=== PATIENT | male | born 1950 | race Caucasian/White ===

== ENCOUNTER 2017-08-26 14:52 | Inpatient (IN) | payer OTHER ==
[~2017-08-26] VITALS: Ht 170.2 cm; Wt 85.7 kg
[2017-08-26 14:58] VITALS: BP 148/84
[2017-08-26] MEDS ORDERED: LIP80 PO (15:29)
[2017-08-26] MEDS ORDERED: ALLO100T21 PO (15:29)
[2017-08-26] MEDS ORDERED: ATI.5 PO (15:29)
[2017-08-26] MEDS ORDERED: ASPI81TA18 PO (15:29)
[2017-08-26] MEDS ORDERED: INSU-1331 SC (15:41)
[2017-08-26] MEDS ORDERED: LISI5TAB18 PO (15:41)
[2017-08-26] MEDS ORDERED: MEMA10TA PO (15:41)
[2017-08-26] MEDS ORDERED: MELA5TAB5 PO (15:41)
[2017-08-26] MEDS ORDERED: TRAZ-286 PO (15:41)
[2017-08-26] MEDS ORDERED: METO25TE2 PO (15:41)
[2017-08-26] MEDS ORDERED: FINA5TAB1 PO (15:41)
[2017-08-26] MEDS ORDERED: INSU100S54 SC (15:41)
[2017-08-26] MEDS ORDERED: MECL-322 PO (15:41)
[2017-08-26] MEDS ORDERED: QUET50TA PO (15:41)
[2017-08-26] MEDS ORDERED: TIZA4TAB11 PO (15:41)
[2017-08-26] MEDS ORDERED: ONDA4TAB PO (15:41)
[2017-08-26] MEDS ORDERED: VITD1000 PO (15:41)
[2017-08-26] MEDS ORDERED: PANT40EC PO (15:41)
[2017-08-26] MEDS ORDERED: LEVE1000 PO (15:41)
[2017-08-26] MEDS ORDERED: DONE10TA37 PO (15:41)
[2017-08-26] MEDS ORDERED: METOCLOPRAMIDE 10 MG/2 ML INJ VIAL IVP ONE (15:45)
[2017-08-26] MEDS ORDERED: ONDANSETRON 4 MG/2 ML VIAL IVP ONE (15:45)
[2017-08-26] MEDS ORDERED: NACL 0.9% 2,000 ML IV SCH (15:45)
[2017-08-26] MEDS ORDERED: FAMOTIDINE 20 MG/2 ML VIAL IVP ONE (15:45)
--- NOTE | 2017-08-26 16:06 | NUR ---
Assumed care of patient; iv saline lock started and labs draw. called lab for pick and shovel man. Patient with no complaints. Patient denies any chest pain or sob. RR are even and unlabored. Will continue to monitor.
[2017-08-26 16:26] LABS: BASOPHILS # (AUTO) 0.1 K/uL (0.00-0.22); BASOPHILS % (AUTO) 0.5 % (0.0-2.0); EOSINOPHILS % (AUTO) 0.1 % (0.0-4.0); HEMATOCRIT 40.7 % (36-52); LYMPHOCYTES # (AUTO) 1.3 K/uL (2.0-11.5); LYMPHOCYTES % (AUTO) 9.1 % (20.5-51.1); MEAN CORPUSCULAR HEMOGLOBIN 30 pg (27-31); MEAN CORPUSCULAR HGB CONC 35 g/dL (33-37); MEAN CORPUSCULAR VOLUME 86.7 fL (80-94); MONOCYTES # (AUTO) 1.3 K/uL (0.8-1.0); MONOCYTES % (AUTO) 9.2 % (1.7-9.3); NEUTROPHILS # (AUTO) 11.9 K/uL (1.8-7.7); NEUTROPHILS % (AUTO) 81.1 % (42.2-75.2); PLATELET COUNT (AUTO) 264 K/uL (140-450); RED CELL DISTRIBUTION WIDTH 13.8 % (11.6-13.7); WHITE BLOOD COUNT (AUTO) 14.7 K/uL (4.8-10.8)
[2017-08-26 16:29] LABS: APPEARANCE,URINE CLEAR (CLEAR); BLOOD, URINE NEGATIVE (NEGATIVE); LEUKOCYTE ESTERASE ,URINE NEGATIVE (NEGATIVE); NITRITE, URINE NEGATIVE (NEGATIVE); UGLUCOSE 1+ (NEGATIVE)
[2017-08-26 16:40] LABS: ANION GAP 13.6 (8-16); CARBON DIOXIDE 29.2 mmol/L (21-32); CREATININE 1.1 mg/dL (0.7-1.3); POTASSIUM 3.8 mmol/L (3.5-5.1)
[2017-08-26 16:43] LABS: PROTHROMBIN TIME 11.9 secs (10.8-13.4)
[2017-08-26 16:45] LABS: ALBUMIN 2.7 g/dL (3.4-5.0); TOTAL BILIRUBIN 1.2 mg/dL (0.0-1.0)
[2017-08-26 16:50] LABS: BILIRUBIN,URINE NEGATIVE (NEGATIVE); COLOR,URINE AMBER (YELLOW)
[2017-08-26 16:53] LABS: RBC,URINE 0-5 (RARE) /HPF (0-5); WBC,URINE 6-15 (FEW) /HPF (0-5)
[2017-08-26 16:59] LABS: AMYLASE 67 U/L (25-115); LIPASE 612 U/L (73-393)
--- NOTE | 2017-08-26 17:03 | NUR ---
patient to restroom via w/c with daughter. returned to rm 9 without incidient.
[2017-08-26] MEDS ORDERED: ACETAMINOPHEN 325 MG TAB PO PRN (17:15)
[2017-08-26] MEDS ORDERED: DOCUSATE SODIUM 100 MG GELCAP PO PRN (17:15)
[2017-08-26] MEDS ORDERED: LORazepam 2 MG/ML VIAL IM/IVP PRN (17:15)
[2017-08-26] MEDS ORDERED: ZOLPIDEM 5 MG TAB PO PRN (17:15)
--- NOTE | 2017-08-26 18:00 | NUR ---
Awaiting admit room. Patient sts abdomen pain returning. ER md martinez made aware. Will continue to monitor.
[2017-08-26 18:12] LABS: CHOL/HDL RATIO 2.5 (1-4.5); MAGNESIUM 1.5 mg/dL (1.8-2.4); PHOSPHORUS 3.1 mg/dL (2.5-4.9); THYROID STIMULATING HORMONE 0.73 uIU/mL (0.34-3.74)
--- NOTE | 2017-08-26 18:30 | NUR ---
Patient will be admitted to care of [facility]. Admited to Med Surg. Will go to room 110B. Belongings list completed. Bedside Report to Kevin Zazueta.
--- NOTE | 2017-08-26 18:30 | NUR ---
RECEIVED FROM ER VIA [facility] ACCOMPANIED BY PT. DAUGHTER -MAC. NO SIGNS AND SYMPTOMS OF ACUTE DISTRESS NOTED. KEEP COMFORTABLE ON BED. FALL PRECAUTION APPLIED. CALL LIGHT WITHIN REACH. WILL ENDORSED TO VOCATIONAL NURSE LVN NURSE FOR COMPLETION OF ADMISSION.
[2017-08-26] MEDS ORDERED: DEXTROSE 50% 50 ML SYR IVP PRN (18:40)
[2017-08-26 18:44] VITALS: BP 145/81
--- NOTE | 2017-08-26 18:45 | NUR ---
DR. RAMOS CAME SPOKE TO PT. AND PT. DAUGHTER -MAC AT BEDSIDE. ALSO INFORMED DR. RAMOS ABOUT PT. LAB RESULTS. AND LATEST VITALS SIGNS.
[2017-08-26] MEDS ORDERED: MAG SULF 2000 MG/WATER PREMIX 50 ML IV SCH (19:00)
--- NOTE | 2017-08-26 19:23 | NUR ---
ADMITTED A 66 Y/O MALE WITH CHIEF COMPLAIN OF GENERALIZED WEAKNESS. SEEN PATIENT SITTING ON THE BED. PATIENT A0X2.BED IN LOW POSITION AND CALL LIGHT WITHIN REACH. ROUTINE ADMISSION CARE DONE AND CARRIED OUT ORDERS. NO PERSONAL BELONGINGS. PLAN OF CARE DISCUSSED TO FAMILY.WILL CONTINUE TO MONITOR.
--- NOTE | 2017-08-26 19:23 | NUR ---
BEDSIDE REPORT GIVEN TO RADHA SIMMS. IN STABLE CONDITION. ALSO ENDORSED TO COMPLETE PT. ADMISSION.
[2017-08-26] MEDS ORDERED: MECLIZINE 25 MG TAB PO PRN (19:35)
[2017-08-26] MEDS ORDERED: LORazepam 0.5 MG TAB PO PRN (19:35)
[2017-08-26] MEDS ORDERED: METO25TA PO (19:43)
[2017-08-26] MEDS: NACL 0.9% 1,000 ML IV SCH (20:35)
[2017-08-26] MEDS: QUEtiapine FUMARATE 25 MG TAB PO SCH (20:58)
[2017-08-26] MEDS: levETIRAcetam 500 MG TAB PO SCH (20:59)
[2017-08-26] MEDS: ATORVASTATIN 80 MG TAB PO SCH (20:59)
[2017-08-26] MEDS: METOPROLOL 25 MG TAB PO SCH (20:59)
[2017-08-26] MEDS: tiZANidine 4 MG TAB PO SCH (21:00)
[2017-08-26] MEDS: MEMANTINE 10 MG TAB PO SCH (21:00)
[2017-08-26] MEDS ORDERED: ASPIRIN 81 MG TAB.CHEW PO SCH (21:00)
--- NOTE | 2017-08-26 21:00 | NUR ---
SEEN PATIENT RESTING ON BED. BED IN LOW POSITION. MEDICATION GIVEN AND TOLERATED WELL. BS TAKEN NO COVERAGE NEEDED .CALL LIGHT WITHIN REACH. . NO S/S OF DISTRESS NOTED AT THIS TIME. WILL CONTINUE TO MONITOR.
[2017-08-26] MEDS: traZODone 50 MG TAB PO SCH (21:11)
[2017-08-26] MEDS: BLOOD GLUCOSE MONITORING 1 DEV DEV FS SCH (21:14)
[2017-08-26] MEDS ORDERED: CLINDAMYCIN 600 MG/4 ML VIAL ONE (21:48)
[2017-08-26] MEDS: LEVOFLOXACIN 750 MG/D5W PREMIX 150 ML IV SCH (21:48)
[2017-08-26] MEDS: CLINDAMYCIN 600 MG in DEXTROSE 5% 50 ML IV SCH (21:48)
--- NOTE | 2017-08-26 23:15 | NUR ---
SEEN PATIENT ASLEEP ON BED. CALL LIGHT WITHIN REACH. BED IN LOW POSITION. NO S//S OF DISTRESS NOTED AT THIS TIME.
[2017-08-27] MEDS: NACL 0.9% 1,000 ML IV SCH (00:57)
--- NOTE | 2017-08-27 01:10 | NUR ---
CHECKED PATIENT ASLEEP ON BED IN COMFORTABLE POSITION. NO S/S OF DISTRESS NOTED AT THIS TIME. BED IN LOW POSITION. WILL CONTINUE TO MONITOR.
[2017-08-27 04:00] VITALS: BP 133/72
[2017-08-27] MEDS ORDERED: CLINDAMYCIN 600 MG/4 ML VIAL ONE (04:22)
[2017-08-27] MEDS: CLINDAMYCIN 600 MG in DEXTROSE 5% 50 ML IV SCH (04:25)
--- NOTE | 2017-08-27 04:39 | NUR ---
SEEN PATIENT RESTING COMFORTABLY ON BED.CALL LIGHTS WITHIN REACH. REPOSITIONED PATIENT TO HIS SIDE .
[2017-08-27] MEDS: INSULIN LISPRO SLIDING SCALE 100 UNITS/ML VIAL SUBQ PRN ×3 (06:02→21:12)
[2017-08-27] MEDS: BLOOD GLUCOSE MONITORING 1 DEV DEV FS SCH ×4 (06:04→21:10)
[2017-08-27 07:02] LABS: BASOPHILS % (AUTO) 0.2 % (0.0-2.0); HEMATOCRIT 37.6 % (36-52); HEMOGLOBIN 12.8 g/dL (12.0-18.0); LYMPHOCYTES # (AUTO) 1.1 K/uL (2.0-11.5); LYMPHOCYTES % (AUTO) 6.9 % (20.5-51.1); MEAN CORPUSCULAR HEMOGLOBIN 30 pg (27-31); MEAN CORPUSCULAR HGB CONC 34 g/dL (33-37); MONOCYTES # (AUTO) 1.6 K/uL (0.8-1.0); MONOCYTES % (AUTO) 10.2 % (1.7-9.3); NEUTROPHILS # (AUTO) 12.7 K/uL (1.8-7.7); NEUTROPHILS % (AUTO) 82.7 % (42.2-75.2); PLATELET COUNT (AUTO) 252 K/uL (140-450); RED BLOOD CELL COUNT(AUTO) 4.32 MIL/uL (4.20-6.10); RED CELL DISTRIBUTION WIDTH 13.7 % (11.6-13.7); WHITE BLOOD COUNT (AUTO) 15.4 K/uL (4.8-10.8)
[2017-08-27 07:22] LABS: ANION GAP 12.1 (8-16); CREATININE 1.1 mg/dL (0.7-1.3); POTASSIUM 4.1 mmol/L (3.5-5.1)
[2017-08-27 07:27] LABS: MAGNESIUM 1.9 mg/dL (1.8-2.4); PHOSPHORUS 2.9 mg/dL (2.5-4.9)
--- NOTE | 2017-08-27 07:27 | NUR ---
ENDORSEMENT GIVEN TO AM SHIFT FOR CONTINUITY OF CARE. PATIENT IN STABLE CONDITION.
--- NOTE | 2017-08-27 07:30 | NUR ---
RECEIVED REPORT FROM DAY CARE CENTER DIRECTOR RN. PATIENT IS IN STABLE CONDITION. AAO X2. NO DISTRESS NOTED. DENIES PAIN AT THIS TIME. CRACKLES AUSCULTATED AT BASE OF LUNGS. HEART RHYTHM IS REGULAR, S1 AND S2 NOTED. ABDOMEN IS SOFT AND NON-DISTENDED. IV SITE IS PATENT, ASYMPTOMATIC, AND RUNNING IVF PER MD ORDERS. SKIN IS INTACT. DISCUSSED PLAN OF CARE WITH PATIENT. PATIENT VERBALIZED UNDERSTANDING BUT REINFORCEMENT IS NEEDED. ALL SAFETY MEASURES ARE IN PLACE, CALL LIGHT WITHIN REACH. WILL CONTINUE TO MONITOR.
[2017-08-27 08:00] VITALS: BP 143/78
--- NOTE | 2017-08-27 08:37 | NUR ---
PATIENT HAS BEEN SCREENED AND CATEGORIZED HIGH NUTRITION RISK. PATIENT WILL BE SEEN WITHIN 1-2 DAYS OF ADMISSION. 08/27/17 08/28/[address]
[2017-08-27] MEDS: INSULIN LANTUS 100 UNITS/ML 10 ML VIAL SUBQ SCH (09:00)
[2017-08-27] MEDS: levETIRAcetam 500 MG TAB PO SCH ×2 (09:01→20:20)
[2017-08-27] MEDS: CHOLECALCIFEROL 1,000 IU TAB PO SCH (09:01)
[2017-08-27] MEDS: ALLOPURINOL 100 MG TAB PO SCH (09:02)
[2017-08-27] MEDS: PANTOPRAZOLE 40 MG TABEC PO SCH (09:02)
[2017-08-27] MEDS: DONEPEZIL 10 MG TAB PO SCH (09:02)
[2017-08-27] MEDS: MEMANTINE 10 MG TAB PO SCH ×2 (09:02→20:20)
[2017-08-27] MEDS: LACTOBACILLUS RHAMNOSUS GG 1 EACH CAP PO SCH (09:03)
[2017-08-27] MEDS: FINASTERIDE 5 MG TAB PO SCH (09:03)
[2017-08-27] MEDS: TAMSULOSIN 0.4 MG CAP PO SCH (09:03)
[2017-08-27] MEDS: METOPROLOL 25 MG TAB PO SCH ×2 (09:03→20:20)
--- NOTE | 2017-08-27 09:03 | NUR ---
SCHEDULED MEDICATIONS GIVEN AT THIS TIME PER MD ORDERS. PATIENT DENIES PAIN. NO DISTRESS NOTED. WILL CONTINUE TO MONITOR.
[2017-08-27] MEDS: LISINOPRIL 5 MG TAB PO SCH (09:04)
[2017-08-27] MEDS: FUROSEMIDE 40 MG/4 ML VIAL IVP SCH (09:05)
--- NOTE | 2017-08-27 12:25 | NUR ---
PATIENT'S BLOOD SUGAR IS 137. WILL CONTINUE TO MONITOR. ALL SAFETY MEASURES ARE IN PLACE, CALL LIGHT WITHIN REACH.
[2017-08-27] MEDS ORDERED: CLINDAMYCIN PHOS 600MG/D5W PM 50 ML IV SCH (13:00)
[2017-08-27] MEDS ORDERED: metroNIDAZOLE 500 MG/NS PREMIX 100 ML IV SCH (13:10)
--- NOTE | 2017-08-27 14:55 | NUR ---
PATIENT IS RESTING IN BED, AROUSABLE BY VOICE. DENIES PAIN AT THIS TIME. WILL CONTINUE TO MONITOR.
[2017-08-27 16:00] VITALS: BP 130/68
[2017-08-27] MEDS: ALBUTEROL SULFATE/IPRATROPIU 3 ML SOL IH SCH (19:22)
--- NOTE | 2017-08-27 19:30 | NUR ---
REPORT GIVEN TO ANALYSIS MANAGER NURSE AT BEDSIDE. PATIENT IS IN STABLE CONDITION.
--- NOTE | 2017-08-27 19:30 | NUR ---
RECEIVED PATIENT SITTING IN THE CHAIR ON THE BEDSIDE. CALL LIGHTS WITHIN REACH. BED IN LOW POSITION. FREQUENTLY CHECK FOR SAFETY. WILL CONTINUE TO MONITOR.
[2017-08-27] MEDS: traZODone 50 MG TAB PO SCH (20:19)
[2017-08-27] MEDS: QUEtiapine FUMARATE 25 MG TAB PO SCH (20:19)
[2017-08-27] MEDS: ATORVASTATIN 80 MG TAB PO SCH (20:21)
[2017-08-27] MEDS: metroNIDAZOLE 500 MG/NS PREMIX 100 ML IV SCH (20:25)
[2017-08-27] MEDS: tiZANidine 4 MG TAB PO SCH (20:39)
--- NOTE | 2017-08-27 21:00 | NUR ---
MEDICATION GIVEN AND BS TAKEN. PATIENT WAS SITTING IN THE CHAIR NEXT TO BED. PATIENT NEED DIRECTION AND ASSISTING WHILE WALKING. PATIENT ASSISTED BACK TO BED WITH HEAD ELEVATED. CALL LIGHT WITHIN REACH. BED IN LOW POSITION.
[2017-08-27] MEDS: LEVOFLOXACIN 750 MG/D5W PREMIX 150 ML IV SCH (21:14)
[2017-08-28] VITALS: BP 122/67
--- NOTE | 2017-08-28 00:43 | NUR ---
CHECKED PATIENT ASLEEP ON BED. CALL LIGHT WITHIN REACH. BED ALARM ACTIVATE. BED IN LOW POSITION.
--- NOTE | 2017-08-28 02:11 | NUR ---
SEEN PATIENT RESTING ON BED WITH IV FLUID INFUSING WELL. CALL LIGHTS WITHIN REACH. ACTIVATE BED ALARM. BED IN LOW POSITION.
--- NOTE | 2017-08-28 05:05 | NUR ---
PATIENT BED CHANGED AND LORENZO CARE DONE TO PATIENT AND PLACED PATIENT IN COMFORTABLE POSITION WITH CALL LIGHTS WITHIN REACH. BED IN LOW POSITION.
[2017-08-28] MEDS: metroNIDAZOLE 500 MG/NS PREMIX 100 ML IV SCH ×3 (05:36→22:01)
[2017-08-28] MEDS: INSULIN LISPRO SLIDING SCALE 100 UNITS/ML VIAL SUBQ PRN ×4 (06:02→21:04)
[2017-08-28] MEDS: BLOOD GLUCOSE MONITORING 1 DEV DEV FS SCH ×4 (06:04→21:01)
--- NOTE | 2017-08-28 07:15 | NUR ---
GAVE REPORT AT PATIENT BEDSIDE TO AM SHIFT NURSE FOR CONTINUITY OF CARE. PATIENT IN STABLE CONDITION.
[2017-08-28] MEDS: ALBUTEROL SULFATE/IPRATROPIU 3 ML SOL IH SCH ×3 (07:40→20:28)
[2017-08-28 07:41] LABS: BASOPHILS % (AUTO) 0.2 % (0.0-2.0); HEMOGLOBIN 13.2 g/dL (12.0-18.0); LYMPHOCYTES # (AUTO) 0.9 K/uL (2.0-11.5); LYMPHOCYTES % (AUTO) 6.6 % (20.5-51.1); MEAN CORPUSCULAR HEMOGLOBIN 29 pg (27-31); MEAN CORPUSCULAR HGB CONC 34 g/dL (33-37); MEAN CORPUSCULAR VOLUME 86.3 fL (80-94); MONOCYTES % (AUTO) 7.3 % (1.7-9.3); NEUTROPHILS # (AUTO) 12.1 K/uL (1.8-7.7); NEUTROPHILS % (AUTO) 85.9 % (42.2-75.2); PLATELET COUNT (AUTO) 272 K/uL (140-450); RED BLOOD CELL COUNT(AUTO) 4.51 MIL/uL (4.20-6.10); RED CELL DISTRIBUTION WIDTH 13.6 % (11.6-13.7); WHITE BLOOD COUNT (AUTO) 14.1 K/uL (4.8-10.8)
[2017-08-28 07:49] LABS: ANION GAP 14.1 (8-16); CARBON DIOXIDE 26.9 mmol/L (21-32); CREATININE 1.1 mg/dL (0.7-1.3)
[2017-08-28 08:00] VITALS: BP 125/76
[2017-08-28 08:03] LABS: MAGNESIUM 1.6 mg/dL (1.8-2.4)
--- NOTE | 2017-08-28 08:10 | NUR ---
PATIENT WAS SLEEPING COMFORTABLY, EASILY AROUSABLE BY NAME. RESPIRATION EVEN, UNLABOR ON ROOM AIR. SKIN DRY AND WARM. LUNGS SOUND CLEAR THROUGHOUT. BOWEL SOUND ACTIVE. DENIED PAIN, N/V AT THIS TIME. PLAN OF CARE WAS DISCUSSED WITH PATIENT. INSTRUCTED PATIENT NOT TO AMBULATE WITHOUT ASSISTANCE FROM STAFF. BED AT LOW POSITION, SIDE RAILS UP. CALL LIGHT WITHIN REACH
[2017-08-28] MEDS: PANTOPRAZOLE 40 MG TABEC PO SCH (08:57)
[2017-08-28] MEDS: levETIRAcetam 500 MG TAB PO SCH ×2 (08:57→20:47)
[2017-08-28] MEDS: ALLOPURINOL 100 MG TAB PO SCH (08:57)
[2017-08-28] MEDS: METOPROLOL 25 MG TAB PO SCH ×2 (08:57→20:48)
[2017-08-28] MEDS: LACTOBACILLUS RHAMNOSUS GG 1 EACH CAP PO SCH (08:58)
[2017-08-28] MEDS: LISINOPRIL 5 MG TAB PO SCH (08:58)
[2017-08-28] MEDS: FINASTERIDE 5 MG TAB PO SCH (08:58)
[2017-08-28] MEDS: TAMSULOSIN 0.4 MG CAP PO SCH (08:58)
[2017-08-28] MEDS: CHOLECALCIFEROL 1,000 IU TAB PO SCH (08:58)
[2017-08-28] MEDS: MEMANTINE 10 MG TAB PO SCH ×2 (08:58→20:49)
[2017-08-28] MEDS: DONEPEZIL 10 MG TAB PO SCH (08:59)
[2017-08-28] MEDS: FUROSEMIDE 40 MG/4 ML VIAL IVP SCH (08:59)
[2017-08-28] MEDS: INSULIN LANTUS 100 UNITS/ML 10 ML VIAL SUBQ SCH (09:00)
--- NOTE | 2017-08-28 10:23 | NUR ---
RD RECOMMENDATIONS: 1. CONTINUE ON CLEAR LIQUID MEDICALLY APPROPRIATE. 2. ADVANCE DIET TO CCHO 60 GM TOLERATED. 3. CONSULT RDN PRN. 4. RD WILL F/U 2-3 DAYS; HIGH RISK. STEWART CAMPOS MS, RDN
--- NOTE | 2017-08-28 11:42 | NUR ---
DR. JACKSON WAS MADE AWARE OF POTASSIUM 3.0, MG 1.6, AWAITING FOR NEW ORDERS
[2017-08-28] MEDS ORDERED: MAG SULF 2000 MG/WATER PREMIX 50 ML IV SCH (11:50)
[2017-08-28] MEDS ORDERED: POTASSIUM CHLORIDE 10 MEQ TABER PO SCH (11:51)
--- NOTE | 2017-08-28 12:07 | NUR ---
PATIENT IS SLEEPING COMFORTABLY. RESPIRATION EVEN, UNLABOR ON ROOM AIR. NO DISTRESS NOTED AT THIS TIME. CALL LIGHT WITHIN REACH
--- NOTE | 2017-08-28 13:25 | NUR ---
PT IS ASLEEP HHN NOT GIVEN VISITOR BEDSIDE
[2017-08-28] MEDS: NACL 0.9% 1,000 ML IV SCH (14:25)
--- NOTE | 2017-08-28 14:30 | NUR ---
PATIENT IS SLEEPING COMFORTABLY. RESPIRATION EVEN, UNLABOR ON ROOM AIR. NO DISTRESS NOTED AT THIS TIME. CALL LIGHT WITHIN REACH.
[2017-08-28 16:00] VITALS: BP 130/76
--- NOTE | 2017-08-28 16:17 | NUR ---
PATIENT WAS SLEEPING COMFORTABLY, EASILY AROUSABLE BY NAME. RESPIRATION EVEN, UNLABOR ON ROOM AIR. DENIED PAIN AT THIS TIME. VS IS STABLE. NO DISTRESS NOTED. CALL LIGHT WITHIN REACH.
--- NOTE | 2017-08-28 18:39 | NUR ---
PATIENT AWAKE, ALERT. RESPIRATION EVEN, UNLABOR ON ROOM AIR. AMBULATED TO BATHROOM WITH ASSIST BY STAFF. NO DISTRESS NOTED AT THIS TIME. CALL LIGHT WITHIN REACH
--- NOTE | 2017-08-28 19:18 | NUR ---
Patient's Plan of Care was discussed and reviewed with CRANE ASSEMBLER: MILLICENT BRODERICK
--- NOTE | 2017-08-28 19:18 | NUR ---
ENDORSEMENT GIVEN TO THE BUCKLE ATTACHING MACHINE OPERATOR NURSE. PATIENT IS STABLE AT THIS TIME
--- NOTE | 2017-08-28 19:19 | NUR ---
RECD. RESTING IN BED, AWAKE, A/OX2, RESPIRATION EVEN AND UNLABORED. IV OF NS AT 70 ML/HR INFUSING, RIGHT AC G20. SAFETY MEASURES ENFORCED. BED ON ALARM. PLAN OF CARE FOR THE SHIFT DISCUSSED. NEEDS REINFORCEMENT. INSTRUCTED TO USE CALL LIGHT WHEN NEEDING HELP. REORIENTED TO HOSPITAL SETTING. DENIES PAIN 0/10.
[2017-08-28] MEDS: LEVOFLOXACIN 750 MG/D5W PREMIX 150 ML IV SCH (20:30)
[2017-08-28] MEDS: POTASSIUM CHLORIDE 10 MEQ TABER PO SCH (20:46)
[2017-08-28] MEDS: QUEtiapine FUMARATE 25 MG TAB PO SCH (20:46)
[2017-08-28] MEDS: traZODone 50 MG TAB PO SCH (20:47)
[2017-08-28] MEDS: ATORVASTATIN 80 MG TAB PO SCH (20:47)
--- NOTE | 2017-08-28 20:50 | NUR ---
DUE PO MEDICATIONS GIVEN. TOLERATED WELL.
[2017-08-28] MEDS ORDERED: INSULIN LANTUS 100 UNITS/ML 10 ML VIAL SUBQ SCH (21:00)
[2017-08-29] VITALS: BP 99/60
--- NOTE | 2017-08-29 | NUR ---
SLEEPING COMFORTABLY IN BED.
[2017-08-29] MEDS: HYDROcodone/APAP 5/325 MG 1 TAB TAB PO PRN ×2 (01:31→18:10)
[2017-08-29] MEDS: NACL 0.9% 1,000 ML IV SCH ×2 (04:47→19:05)
[2017-08-29] MEDS: metroNIDAZOLE 500 MG/NS PREMIX 100 ML IV SCH ×3 (05:20→20:25)
--- NOTE | 2017-08-29 06:00 | NUR ---
AWAKE, STANDING NEAR BED, USING URINAL. ABLE TO VOID 100 ML TEA COLORED URINE. SAFETY MAINTAINED.
[2017-08-29] MEDS: BLOOD GLUCOSE MONITORING 1 DEV DEV FS SCH ×4 (06:52→21:35)
[2017-08-29] MEDS: INSULIN LISPRO SLIDING SCALE 100 UNITS/ML VIAL SUBQ PRN ×4 (06:54→21:46)
[2017-08-29] MEDS: ALBUTEROL SULFATE/IPRATROPIU 3 ML SOL IH SCH ×3 (07:10→18:47)
--- NOTE | 2017-08-29 07:35 | NUR ---
CONDITION REMAIN STABLE. COMPLAINT OF BACK PAIN ATTENDED PROMPTLY, MEDICATED ORDERED. ENDORSED TO AM NURSE FOR CONTINUITY OF CARE.
--- NOTE | 2017-08-29 07:50 | NUR ---
PATIENT AWAKE, ALERT. RESPIRATION EVEN, UNLABOR ON ROOM AIR. SKIN DRY AND WARM. LUNGS SOUND CLEAR THROUGHOUT. BOWEL SOUND ACTIVE. DENIED PAIN, N/V AT THIS TIME. PLAN OF CARE WAS DISCUSSED WITH PATIENT. INSTRUCTED PATIENT NOT TO AMBULATE WITHOUT ASSISTANCE FROM STAFF. BED AT LOW POSITION, SIDE RAILS UP. CALL LIGHT WITHIN REACH
[2017-08-29 08:00] VITALS: BP 127/80
--- NOTE | 2017-08-29 08:30 | NUR ---
PATIENT SATURATION 90% ON ROOM AIR. NASAL CANNULA WAS PLACED WITH 2L. DR. JACKSON WAS MADE AWARE.
[2017-08-29] MEDS: ALLOPURINOL 100 MG TAB PO SCH (08:56)
[2017-08-29] MEDS: CHOLECALCIFEROL 1,000 IU TAB PO SCH (08:56)
[2017-08-29] MEDS: LACTOBACILLUS RHAMNOSUS GG 1 EACH CAP PO SCH (08:56)
[2017-08-29] MEDS: levETIRAcetam 500 MG TAB PO SCH ×2 (08:56→21:23)
[2017-08-29] MEDS: TAMSULOSIN 0.4 MG CAP PO SCH (08:56)
[2017-08-29] MEDS: POTASSIUM CHLORIDE 10 MEQ TABER PO SCH ×2 (08:56→21:22)
[2017-08-29] MEDS: METOPROLOL 25 MG TAB PO SCH ×3 (08:57→21:23)
[2017-08-29] MEDS: PANTOPRAZOLE 40 MG TABEC PO SCH (08:57)
[2017-08-29] MEDS: FINASTERIDE 5 MG TAB PO SCH (08:57)
[2017-08-29] MEDS: FUROSEMIDE 40 MG/4 ML VIAL IVP SCH (08:57)
[2017-08-29] MEDS: LISINOPRIL 5 MG TAB PO SCH (08:57)
[2017-08-29] MEDS: DONEPEZIL 10 MG TAB PO SCH (08:57)
[2017-08-29] MEDS: MEMANTINE 10 MG TAB PO SCH ×2 (08:58→21:23)
[2017-08-29 09:39] LABS: ANION GAP 14.9 (8-16); CARBON DIOXIDE 26.3 mmol/L (21-32); CREATININE 1.1 mg/dL (0.7-1.3); POTASSIUM 3.2 mmol/L (3.5-5.1)
[2017-08-29 09:52] LABS: HEMATOCRIT 36.3 % (36-52); HEMOGLOBIN 12.3 g/dL (12.0-18.0); MEAN CORPUSCULAR HEMOGLOBIN 29 pg (27-31); MEAN CORPUSCULAR HGB CONC 34 g/dL (33-37); MEAN CORPUSCULAR VOLUME 86.5 fL (80-94); PLATELET COUNT (AUTO) 273 K/uL (140-450); RED BLOOD CELL COUNT(AUTO) 4.19 MIL/uL (4.20-6.10)
[2017-08-29 10:00] LABS: MAGNESIUM 1.6 mg/dL (1.8-2.4)
[2017-08-29 10:36] LABS: PHOSPHORUS 2.7 mg/dL (2.5-4.9)
[2017-08-29 11:01] LABS: BASOPHILS % (MANUAL) 0 % (0-2); EOSINOPHILS % (MANUAL) 0 % (0-4); LYMPHOCYTES % (MANUAL) 8 % (20-46); MONOCYTES % (MANUAL) 10 % (5-12)
--- NOTE | 2017-08-29 11:04 | NUR ---
CALLED AND GAVE REPORT TO MINDY AT [facility]. WILL CALL BACK FOR THE TRANSPORT TIME.
--- NOTE | 2017-08-29 11:06 | NUR ---
DR. JACKSON WAS MADE AWARE PATIENT'S MG 1.6, AWAITING FOR NEW ORDER
[2017-08-29] MEDS ORDERED: MAGNESIUM OXIDE 400 MG TAB PO SCH (11:19)
[2017-08-29] MEDS ORDERED: LEVO750T2 PO (11:26)
[2017-08-29] MEDS ORDERED: POTA10TE30 PO (11:26)
[2017-08-29] MEDS ORDERED: METR250T2 PO (11:27)
--- NOTE | 2017-08-29 12:30 | NUR ---
ATTEMPTED TO CALL , DM REGARDING THE TRANSFER, UNABLE TO LEAVE VOICEMAIL.
--- NOTE | 2017-08-29 12:34 | NUR ---
PATIENT AWAKE, ALERT. RESPIRATION EVEN, UNLABOR ON 2L NC. NO DISTRESS NOTED AT THIS TIME. MEDS WERE GIVEN PER ORDER. CALL LIGHT WITHIN REACH
--- NOTE | 2017-08-29 13:19 | NUR ---
pt sleeping no hhn given no signs of distress noted
--- NOTE | 2017-08-29 14:00 | NUR ---
PATIENT IS RESTING COMFORTABLY. RESPIRATION EVEN, UNLABOR ON ROOM AIR. NO DISTRESS NOTED AT THIS TIME
--- NOTE | 2017-08-29 14:08 | NUR ---
[address] JEFFERSON REGARDING POSSIBLE TRANSFER TO SNF TODAY AND INFORMED HIM THAT PER NURSE HAVE NOT BEEN ABLE TO CONTACT REGARDING TRANSFER AND OBTAINED 'S PREFERENCE FOR SNF. DR JEFFERSON WILL ATTEMPT TO CALL DM.
--- NOTE | 2017-08-29 15:47 | NUR ---
DR. JACKSON WAS MADE AWARE OF PATIENT'S BLOOD SUGAR 405. 12 UNITS OF HUMALOG WAS ORDERED. WILL MEDICATE PER ORDER
[2017-08-29 16:00] VITALS: BP 121/77
--- NOTE | 2017-08-29 16:30 | NUR ---
SPOKE WITH , DM, ON THE PHONE. OK WITH RHEA HERNANDEZ. DR. JACKSON WAS MADE AWARE. WILL INITIATE TRANSFER TOMORROW MORNING.
--- NOTE | 2017-08-29 18:19 | NUR ---
PATIENT AWAKE, ALERT. RESPIRATION EVEN, UNLABOR ON ROOM AIR. PATIENT REFUSED TO WEAR NASAL CANNULA, AND KEPT TAKING IT OFF. EXPLAINED TO THE PATIENT THE RISKS AND BENEFITS. CALL LIGHT WITHIN REACH
--- NOTE | 2017-08-29 19:17 | NUR ---
ENDORSEMENT GIVEN TO THE THEOLOGY PROFESSOR NURSE. PATIENT IS STABLE AT THIS TIME
--- NOTE | 2017-08-29 19:18 | NUR ---
RECD. RESTING IN BED, AWAKE, A/OX2. RESPIRATION EVEN AND UNLABORED. IV OF NS AT 70 ML/HR INFUSING, RIGHT AC G 20. SIT UP IN BED, REORIENTED TO HOSPITAL SETTING, PLAN OF CARE FOR THE SHIFT DISCUSSED. NEEDS REINFORCEMENT. WENT BACK TO SLEEP. SAFETY MEASURES ENFORCED. BED ON ALARM. DENIES PAIN 0/10.
--- NOTE | 2017-08-29 19:18 | NUR ---
Patient's Plan of Care was discussed and reviewed with POST TENSIONING IRONWORKER HELPER: MILLICENT BRODERICK
[2017-08-29 20:00] VITALS: BP 96/51
[2017-08-29] MEDS ORDERED: INSULIN LANTUS 100 UNITS/ML 10 ML VIAL SUBQ SCH (21:00)
[2017-08-29] MEDS: ATORVASTATIN 80 MG TAB PO SCH (21:22)
[2017-08-29] MEDS: QUEtiapine FUMARATE 25 MG TAB PO SCH (21:22)
[2017-08-29] MEDS: traZODone 50 MG TAB PO SCH (21:22)
--- NOTE | 2017-08-29 21:23 | NUR ---
DUE PO MEDICATIONS GIVEN. ATE 100% OF SNACK FOR THE NIGHT.
--- NOTE | 2017-08-29 23:00 | NUR ---
TRANSFERRED TO ROOM 122A. CONTINUED SLEEPING COMFORTABLY IN BED.
[2017-08-30] VITALS: BP 103/53
--- NOTE | 2017-08-30 01:30 | NUR ---
VOIDED IN THE URINAL 175 ML OF CLOUDY TEA COLORED URINE. BACK TO SLEEP AFTER VOIDING.
--- NOTE | 2017-08-30 03:15 | NUR ---
ASSISTED BY SPECIAL EDUCATION CLASSROOM AIDE TO AMBULATE TO BR TO VOID. BACK TO BED AFTER VOIDING, WENT BACK TO SLEEP.
[2017-08-30] MEDS: NACL 0.9% 1,000 ML IV SCH ×2 (04:06→08:50)
[2017-08-30] MEDS: metroNIDAZOLE 500 MG/NS PREMIX 100 ML IV SCH ×3 (04:38→20:43)
[2017-08-30] MEDS: HYDROcodone/APAP 5/325 MG 1 TAB TAB PO PRN (05:29)
[2017-08-30] MEDS: BLOOD GLUCOSE MONITORING 1 DEV DEV FS SCH ×4 (06:15→21:00)
[2017-08-30] MEDS: INSULIN LISPRO SLIDING SCALE 100 UNITS/ML VIAL SUBQ PRN ×4 (06:16→20:37)
[2017-08-30] MEDS: ALBUTEROL SULFATE/IPRATROPIU 3 ML SOL IH SCH ×3 (06:49→19:00)
--- NOTE | 2017-08-30 06:49 | NUR ---
pt sleeping with no signs of distress noted at this time no hhn given
--- NOTE | 2017-08-30 06:53 | NUR ---
CONDITION REMAIN STABLE. WILL ENDORSED TO AM NURSE FOR CONTINUITY OF CARE.
--- NOTE | 2017-08-30 07:30 | NUR ---
STILL SLEEPING COMFORTABLY IN BED. ENDORSED TO AM NURSE FOR CONTINUITY OF CARE.
--- NOTE | 2017-08-30 07:31 | NUR ---
PT IS SLEEPING. NO SIGNS OF DISTRESS. UPDATED THE BOARD. V/S WITHIN NORMAL RANGE. PER COSTUME SHOP MANAGER, PT IS AMBULATORY BUT BEDREST FOR GENERALIZED WEAKNESS. SKIN IS INTACT. IV ON R FA 22G NS AT 70ML INFUSING. PT IS TO BE D/C TODAY BACK TO [facility]. WILL CONTINUE TO MONITOR PT.
[2017-08-30 07:54] LABS: BASOPHILS % (AUTO) 0.3 % (0.0-2.0); EOSINOPHILS % (AUTO) 0.1 % (0.0-4.0); HEMATOCRIT 35.5 % (36-52); LYMPHOCYTES % (AUTO) 8.6 % (20.5-51.1); MEAN CORPUSCULAR HEMOGLOBIN 29 pg (27-31); MEAN CORPUSCULAR HGB CONC 34 g/dL (33-37); MEAN CORPUSCULAR VOLUME 86.2 fL (80-94); MONOCYTES % (AUTO) 8.3 % (1.7-9.3); NEUTROPHILS # (AUTO) 10.1 K/uL (1.8-7.7); NEUTROPHILS % (AUTO) 82.7 % (42.2-75.2); PLATELET COUNT (AUTO) 294 K/uL (140-450); RED BLOOD CELL COUNT(AUTO) 4.12 MIL/uL (4.20-6.10); WHITE BLOOD COUNT (AUTO) 12.3 K/uL (4.8-10.8)
[2017-08-30 08:00] VITALS: BP 114/66
[2017-08-30 08:07] LABS: ANION GAP 11.4 (8-16); CARBON DIOXIDE 25.6 mmol/L (21-32); CREATININE 0.9 mg/dL (0.7-1.3)
[2017-08-30 08:09] LABS: MAGNESIUM 1.5 mg/dL (1.8-2.4); PHOSPHORUS 2.7 mg/dL (2.5-4.9)
[2017-08-30] MEDS: POTASSIUM CHLORIDE 10 MEQ TABER PO SCH (08:47)
[2017-08-30] MEDS: DONEPEZIL 10 MG TAB PO SCH (08:47)
[2017-08-30] MEDS: levETIRAcetam 500 MG TAB PO SCH ×2 (08:47→20:43)
[2017-08-30] MEDS: CHOLECALCIFEROL 1,000 IU TAB PO SCH (08:47)
[2017-08-30] MEDS: LACTOBACILLUS RHAMNOSUS GG 1 EACH CAP PO SCH (08:48)
[2017-08-30] MEDS: LISINOPRIL 5 MG TAB PO SCH (08:48)
[2017-08-30] MEDS: ALLOPURINOL 100 MG TAB PO SCH (08:48)
[2017-08-30] MEDS: MEMANTINE 10 MG TAB PO SCH ×2 (08:48→20:42)
[2017-08-30] MEDS: TAMSULOSIN 0.4 MG CAP PO SCH (08:48)
[2017-08-30] MEDS: METOPROLOL 25 MG TAB PO SCH ×2 (08:48→20:43)
[2017-08-30] MEDS: FUROSEMIDE 40 MG/4 ML VIAL IVP SCH (08:49)
[2017-08-30] MEDS: FINASTERIDE 5 MG TAB PO SCH (08:49)
[2017-08-30] MEDS: PANTOPRAZOLE 40 MG TABEC PO SCH (08:49)
--- NOTE | 2017-08-30 08:59 | NUR ---
ADMINISTERED MORNING MEDS. PT TOLERATED WELL. P/T IS WORKING WITH PT. PT AMBULATING WELL W/ WALKER. WILL CONTINUE TO MONITOR PT.
--- NOTE | 2017-08-30 10:26 | NUR ---
PT URINATED ON THE FLOOR. PT ALL WET. CLEANED PT. NEW GOWN ON. NOTIFIED HOUSEKEEPING TO CLEAN FLOOR.
--- NOTE | 2017-08-30 10:57 | NUR ---
RECEIVED ORDER FOR TRANSFER PATIENT FOR HIGHER LEVEL OF CARE. SPOKE WITH PRATIMA AT [facility]. FAXED FACE SHEET, H&P AND ORDER TO [facility] AT [phone],
--- NOTE | 2017-08-30 11:29 | NUR ---
PT'S FAMILY, AND DAUGHTER IS HERE FOR UPDATES. EXPLAINED TO FAMILY THAT HE WILL BE TRANSFERRING TO HIGHER LEVEL OF CARE D/T TO HYDRONEPHROSIS AND AND THE PSEUDOCYSTS ON THE PANCREAS. NEED FURTHER WORK UP. VERBALIZED UNDERSTANDING. HE IS WET AGAIN. THIRD TIME NEEDED CHANGING. CALLED FOOD TRAY ASSEMBLER TO CLEAN FLOOR.
--- NOTE | 2017-08-30 11:37 | NUR ---
SPOKE WITH BEVERLY AT [facility]. FAXED FACE SHEET AND ORDER TO HER AT [phone] PHONE [phone] RECEIVED A CALL FROM PRATIMA AT [facility] REQUESTING RESULTS OF CT ABD. FAXED REPORTS TO HER AT [phone]
--- NOTE | 2017-08-30 12:00 | NUR ---
NOTIFIED DR JACKSON OF PT'S LOW SODIUM AND LOW MAG. MD AWARE. NOTIFIED MD THAT FAMILY IS HERE ASKING QUESTIONS ABOUT TRANSFER. MD SPOKE TO FAMILY.
--- NOTE | 2017-08-30 12:11 | NUR ---
ADMINISTERED 6 U OF HUMALOG FOR BS 295 AND FLAGYL. PT TOLERATING WELL. PT IN BED WATCHING TV. WILL CONTINUE TO MONITOR PT.
--- NOTE | 2017-08-30 13:08 | NUR ---
pt refused breathing tx sitting up in bed with no signs of distress noted at this time florentin gonzalez notified
--- NOTE | 2017-08-30 13:29 | NUR ---
RECEIVED A CALL FROM DESHAWN FROM [facility]. SHE SAID DR. COLINDRES, MATT, NEEDED TO SEE THE FILMS, AND JUST THE REPORTS WHICH I HAD ALREADY FAXED TO HER. HAD DISC BURNED AND CHRISTINE IS TRANSPORTING THE DISC TO [facility]. HE IS TO GO T0 THE GI LAB WITH THE DISC FOR DR. COLINDRES. I CALLED DESHAWN FROM THE TRANSFEER CENTER, OP 2 OP 3 AND INFORMED HER THAT THE DISC IS ON ITS WAY.
--- NOTE | 2017-08-30 14:38 | NUR ---
PT WAS AMBULATING IN THE HALLWAY ABOUT 20 MIN AGO. NOW HE IS BACK IN BED, SLEEPING. NO SIGNS OF DISTRESS. STILL WAITING FOR TRANSPORTATION AND OK TO TRANSFER PT TO [facility].
--- NOTE | 2017-08-30 15:42 | NUR ---
I CALLED THE GI LAB AT [facility], . THEY DID RECEIVED THE DISC. I CALLED DESHAWN FROM THE TRANSFER CENTER AND SHE WAS GOING TO CONTACT DR. COLINDRES THAT THE DISC WAS AT THE GI LAB. I GAVE DESHAWN THE PHONE THE THE FLOOR IN CASE THEY WILL ACCEPT THE PATIENT .
[2017-08-30 16:00] VITALS: BP 124/74
[2017-08-30] MEDS ORDERED: MAG SULF 2000 MG/WATER PREMIX 50 ML IV SCH (16:00)
--- NOTE | 2017-08-30 16:28 | NUR ---
ADMINISTERED ROCEPHIN. ONCE IT'S FINISHED, WILL START ON MAG RIDER.
--- NOTE | 2017-08-30 16:30 | NUR ---
CALLED BEVERLY AT [facility]. STILL NO MED SURG BEDS.
--- NOTE | 2017-08-30 17:36 | NUR ---
PHYSICAL THERAPY CO-SIGN The Physical Therapy Progress Notes documented by Sweet Dough Mixer have been reviewed. Reviewed/Co-Signed by: Korina Park Documentation Done by: Connor Arellano PTA Patient nigel tx well, progressing towards goals, cont with PT POC as nigel/safe. Addendum: 08/30/17 at 1736 by Korina Park PT Amended: Links added.
--- NOTE | 2017-08-30 18:48 | NUR ---
PT RESTING IN BED WATCHING TV. MAG STILL INFUSING. NO SIGNS OF DISTRESS. NO COMPLAINTS. WILL ENDORSE TO MOUNTAIN GUIDE NURSE.
--- NOTE | 2017-08-30 19:00 | NUR ---
DESHAWN FROM [facility] CALLED. PER DR COLINDRES, PT DOESN'T MEET CRITERIA FOR TRANSFER. AGREES TO SEE PT ON OUTPT BASIS AFTER PT IS D/C'D.
--- NOTE | 2017-08-30 19:10 | NUR ---
ENDORSED PT TO THE TOLL REPAIRER CENTRAL OFFICE NURSE AT BEDSIDE FOR CONTINUITY OF CARE. PT IN STABLE CONDITION.
--- NOTE | 2017-08-30 19:13 | NUR ---
RECEIVED REPORT FROM DAY SHIFT NURSE. NO RESP DISTRESS NOTED. ON ROOM AIR. NO C/O PAIN. IV TO RIGHT FA #22G, NS AT 70 ML/HR, INFUSING WELL. SKIN INTACT. DISCUSSED PLAN OF CARE, PT VERBALIZED UNDERSTANDING. SAFETY PRECAUTION IN PLACE. CALL LIGHT WITHIN REACH.
[2017-08-30] MEDS: traZODone 50 MG TAB PO SCH (20:42)
[2017-08-30] MEDS: QUEtiapine FUMARATE 25 MG TAB PO SCH (20:42)
[2017-08-30] MEDS: ATORVASTATIN 80 MG TAB PO SCH (20:43)
--- NOTE | 2017-08-30 20:50 | NUR ---
DUE MEDS GIVEN. PT TOLERATED WELL. NO C/O PAIN OR DISCOMFORT.
[2017-08-30] MEDS ORDERED: INSULIN LANTUS 100 UNITS/ML 10 ML VIAL SUBQ SCH (21:00)
--- NOTE | 2017-08-30 23:30 | NUR ---
ASSISTED PT TO BATHROOM AND BACK TO BED. KEPT PT DRY AND COMFORTABLE. ALL NEEDS MET AT THIS TIME. SAFETY PRECAUTION IN PLACE. CALL LIGHT WITHIN REACH.
[2017-08-31] VITALS: BP 136/68
--- NOTE | 2017-08-31 01:45 | NUR ---
PT'S IV LEAKING. D/C IV LINE. PT REFUSED RE-INSERTION OF IV. EXPLAINED TO PT THAT HE NEEDS IV LINE FOR HIS IV MEDS. PT STILL REFUSED. WILL TRY AGAIN LATER. DR. BROWN MADE AWARE.
[2017-08-31] MEDS: NACL 0.9% 1,000 ML IV SCH (02:54)
--- NOTE | 2017-08-31 03:30 | NUR ---
PT SLEEPING BUT EASILY AROUSABLE. NO S/S OF DISTRESS NOTED.
[2017-08-31] MEDS: HYDROcodone/APAP 5/325 MG 1 TAB TAB PO PRN (03:31)
--- NOTE | 2017-08-31 04:21 | NUR ---
PT AGREED TO INSERT IV LINE. INSERTED IV LINE TO RIGHT WRIST #22G. GOOD FLUSH AND BLOOD RETURN. PT TOLERATED PROCEDURE WELL. NO C/O PAIN.
[2017-08-31] MEDS: metroNIDAZOLE 500 MG/NS PREMIX 100 ML IV SCH ×2 (05:24→12:57)
--- NOTE | 2017-08-31 06:15 | NUR ---
PT SLEEPING BUT WAKES EASILY. NO DISTRESS NOTED.
[2017-08-31] MEDS: INSULIN LISPRO SLIDING SCALE 100 UNITS/ML VIAL SUBQ PRN ×2 (06:29→13:08)
[2017-08-31 07:10] LABS: BASOPHILS # (AUTO) 0.1 K/uL (0.00-0.22); BASOPHILS % (AUTO) 0.5 % (0.0-2.0); EOSINOPHILS % (AUTO) 0.3 % (0.0-4.0); HEMATOCRIT 40.5 % (36-52); HEMOGLOBIN 13.6 g/dL (12.0-18.0); LYMPHOCYTES # (AUTO) 1.4 K/uL (2.0-11.5); LYMPHOCYTES % (AUTO) 10.6 % (20.5-51.1); MEAN CORPUSCULAR HEMOGLOBIN 29 pg (27-31); MEAN CORPUSCULAR HGB CONC 34 g/dL (33-37); MEAN CORPUSCULAR VOLUME 87.4 fL (80-94); MONOCYTES # (AUTO) 0.9 K/uL (0.8-1.0); NEUTROPHILS # (AUTO) 10.9 K/uL (1.8-7.7); NEUTROPHILS % (AUTO) 81.6 % (42.2-75.2); PLATELET COUNT (AUTO) 319 K/uL (140-450); RED BLOOD CELL COUNT(AUTO) 4.64 MIL/uL (4.20-6.10); RED CELL DISTRIBUTION WIDTH 13.9 % (11.6-13.7); WHITE BLOOD COUNT (AUTO) 13.3 K/uL (4.8-10.8)
[2017-08-31 07:13] LABS: ANION GAP 13.6 (8-16); CARBON DIOXIDE 27.2 mmol/L (21-32); POTASSIUM 3.8 mmol/L (3.5-5.1)
[2017-08-31] MEDS: BLOOD GLUCOSE MONITORING 1 DEV DEV FS SCH ×2 (07:33→11:30)
--- NOTE | 2017-08-31 07:35 | NUR ---
RECEIVED REPORT FROM NIGHTSHIFT NURSE AT BEDSIDE. PATIENT IS AWAKE AT THIS TIME. PATIENT IS ALERT AND ORIENTED 2-3. NO RESPIRATORY DISTRESS NOTED. PATIENT ON ROOM AIR. NO C/O PAIN. IV TO RIGHT FOREARM 22G WITH NS INFUSING AT 70 ML/HR. LOWERED BED TO LOWEST SETTING. CALL LIGHT WITHIN REACH OF PATIENT. UPDATED BOARD IN PATIENT'S ROOM. PATIENT'S BED IS ALARMED. WILL CONTINUE TO MONITOR PATIENT.
--- NOTE | 2017-08-31 07:35 | NUR ---
ENDORSED PT TO DAY SHIFT NURSE. PT IN STABLE CONDITION.
[2017-08-31 08:00] VITALS: BP 144/91
[2017-08-31] MEDS: ALBUTEROL SULFATE/IPRATROPIU 3 ML SOL IH SCH ×2 (08:10→13:35)
--- NOTE | 2017-08-31 08:20 | NUR ---
RECEIVED PATIENT ON ROOM AIR, O2 SAT 96%. SCHEDULED BREATHING TX ADMINISTERED. PATIENT TOLERATED TX WELL, NO ADVERSE SIDE EFFECTS. NO ACUTE RESPIRATORY DISTRESS NOTED. WILL CONTINUE TO MONITOR.
[2017-08-31] MEDS: ALLOPURINOL 100 MG TAB PO SCH (08:40)
[2017-08-31] MEDS: CHOLECALCIFEROL 1,000 IU TAB PO SCH (08:40)
[2017-08-31] MEDS: DONEPEZIL 10 MG TAB PO SCH (08:40)
[2017-08-31] MEDS: MEMANTINE 10 MG TAB PO SCH (08:40)
[2017-08-31] MEDS: METOPROLOL 25 MG TAB PO SCH (08:41)
[2017-08-31] MEDS: PANTOPRAZOLE 40 MG TABEC PO SCH (08:41)
[2017-08-31] MEDS: levETIRAcetam 500 MG TAB PO SCH (08:41)
[2017-08-31] MEDS: FINASTERIDE 5 MG TAB PO SCH (08:41)
[2017-08-31] MEDS: TAMSULOSIN 0.4 MG CAP PO SCH (08:41)
--- NOTE | 2017-08-31 08:41 | NUR ---
PATIENT TOOK AM MEDICATIONS. PATIENT TOLERATED WELL. WILL CONTINUE TO MONITOR PATIENT.
[2017-08-31] MEDS: FUROSEMIDE 40 MG/4 ML VIAL IVP SCH (08:42)
[2017-08-31] MEDS: LACTOBACILLUS RHAMNOSUS GG 1 EACH CAP PO SCH (08:42)
--- NOTE | 2017-08-31 10:04 | NUR ---
Bullet Maker Note: Per , patient/patient's family in agreement with short term snf placement and their snf preference is [facility] . I faxed inquiry to [facility]. Per Socorro from [facility], patient has been accepted and may go to room 212A, accepting physician is . Socorro reported she will make outpatient follow up appt for patient as per MD's order. Socorro stated she will arrange transportation for patient to be transfer to their facility, [facility], patient will be picked up between 2pm-3pm today, patient's nurse Ar aware. I called patient's [employer] [employer] , no answer, recording states voicemail is full and unable to accept new messages, unable to leave message. Addendum: 08/31/17 at 1410 by Nkechi Blum SS Per patient's nurse Ar, he spoke with patient's Tere and informed her patient will be transfer to [facility] today.
[2017-08-31] MEDS ORDERED: ROC2I IV ×2 (11:20→11:23)
[2017-08-31] MEDS ORDERED: FURO-572 PO (11:20)
--- NOTE | 2017-08-31 11:25 | NUR ---
TALKED TO PATIENT'S REGARDING HIS PLACEMENT AT [facility] IN ROOM 212 A. ACCEPTING PHYSICIAN FOR PATIENT IS DR. JEFFERSON.
[2017-08-31] MEDS ORDERED: METR250T2 IV (11:26)
--- NOTE | 2017-08-31 12:20 | NUR ---
PATIENT RESTING IN BED. NO DISTRESS NOTED. WILL CONTINUE TO MONITOR PATIENT.
--- NOTE | 2017-08-31 13:45 | NUR ---
SCHEDULED BREATHING TX ADMINISTERED. TOLERATED TX WELL. NO ADVERSE SIDE EFFECTS. WILL CONTINUE TO MONITOR.
--- NOTE | 2017-08-31 14:35 | NUR ---
CALLED REPORT TO ROSAURA AGARWAL RN. PROVIDED CALL BACK NUMBER FOR ADDITIONAL QUESTIONS.
--- NOTE | 2017-08-31 14:45 | NUR ---
PHYSICAL THERAPY CO-SIGN The Physical Therapy Progress Notes documented by Roll Former have been reviewed. I CONCUR W/HEAD BOYS TENNIS COACH NOTE; CONT PER TX PLAN Reviewed/Co-Signed by: Ronda Easton, PT Documentation Done by: LENNOX PATINO PTA Addendum: 08/31/17 at 1445 by Ronda Easton PT Amended: Links added.
--- NOTE | 2017-08-31 15:07 | NUR ---
PATIENT SIGNED DISCHARGE INSTRUCTIONS. PATIENT IS AWARE OF THE PLAN AT THE LONG-TERM FACILITY THAT HE IS BEING TRANSFERRED TO. REMOVED IDENTIFICATION BANDS OFF PATIENT. PATIENT LEFT WITH [facility]. PATIENT LEFT WITH ALL BELONGINGS IN STABLE CONDITION.
== END 2017-08-31 15:07 | DRG 871 ==
LOC: MED 14:52 → MTU 17:21
PROVIDERS: ADMIT Family Medicine; ATTEND Family Medicine
DX: A41.9 Sepsis, unspecified organism (principal); J69.0 Pneumonitis due to inhalation of food and vomit; E43 Unspecified severe protein-calorie malnutrition; K85.90 Acute pancreatitis without necrosis or infection, unspecified; K86.3 Pseudocyst of pancreas; N39.0 Urinary tract infection, site not specified; J44.1 Chronic obstructive pulmonary disease with (acute) exacerbation; K21.9 Gastro-esophageal reflux disease without esophagitis; E83.42 Hypomagnesemia; E11.9 Type 2 diabetes mellitus without complications; M10.9 Gout, unspecified; E86.0 Dehydration; G30.9 Alzheimer's disease, unspecified; F02.80 Dementia in other diseases classified elsewhere, unspecified severity, without behavioral disturbance, psychotic disturbance, mood disturbance, and anxiety; I11.0 Hypertensive heart disease with heart failure; I25.10 Atherosclerotic heart disease of native coronary artery without angina pectoris; G31.84 Mild cognitive impairment of uncertain or unknown etiology; G40.909 Epilepsy, unspecified, not intractable, without status epilepticus; I50.810 Right heart failure, unspecified; E87.6 Hypokalemia; B96.20 Unspecified Escherichia coli [E. coli] as the cause of diseases classified elsewhere; N40.0 Benign prostatic hyperplasia without lower urinary tract symptoms; F41.9 Anxiety disorder, unspecified; Z90.49 Acquired absence of other specified parts of digestive tract; X30.XXXA Exposure to excessive natural heat, initial encounter; Y93.89 Activity, other specified; Z88.5 Allergy status to narcotic agent; Y92.89 Other specified places as the place of occurrence of the external cause; Y99.8 Other external cause status; Z86.711 Personal history of pulmonary embolism; Z68.29 Body mass index [BMI] 29.0-29.9, adult; Z95.1 Presence of aortocoronary bypass graft; I25.2 Old myocardial infarction; Z79.899 Other long term (current) drug therapy; Z87.891 Personal history of nicotine dependence; Z95.5 Presence of coronary angioplasty implant and graft
CPT/HCPCS: 36415; 71045; 80048; 80053; 81001; 82150; 82550; 82553; 82948; 83036; 83605; 83690; 83735; 83874; 83880; 84100; 84134; 84443; 84484; 85025; 85610; 85730; 87040; 87070; 87081; 87086; 87186; 87205; 93925; 93970; 94640; 96361; 96374; 96375; 97110; 97116; 97140; 97530; 99285; J0696; J1644; J1815; J1940; J1956; J2405; J2765; J3475; J3490; J7030; J7060; J7620; Q0092; Q9967

== ENCOUNTER 2017-09-11 23:51 | Inpatient (IN) | payer OTHER ==
[~2017-09-11] VITALS: Ht 172.7 cm; Wt 81.6 kg
[2017-09-11 23:51] VITALS: BP 152/84
[~2017-09-11 23:51] MED LIST: ALLO100T21 PO; ASPI81TA18 PO; DONE10TA37 PO; FINA5TAB1 PO; FURO-572 PO; INSU-1331 SC; INSU100S54 SC; LEVE1000 PO; LIP80 PO; MEMA10TA PO; METO25TA PO; METR250T2 IV; PANT40EC PO; QUET50TA PO; ROC2I IV; TRAZ-286 PO; VITD1000 PO
--- NOTE | 2017-09-11 23:57 | NUR ---
66/M BIBA FROM SNF FOR SOB AND CHILLS TODAY. PER EMS PT WAS ADMITTED HERE FOR PNEUMONIA, SATS 89% RA, PT PLACED ON 3LPM NC AT 97%. PT FEBRILE WITH 101.9 TEMP, WARM TO TOUCH. RHONCHI NOTED THROUGHOUT AND DIMINSHED AT BASES. AOX TO NAME AND PLACE, GCS 15. COOLING MEASURES AND MED PROTOCOL INITIATED. PMH: PNEUMONIA, SEPSIS, ACUTE PANCREATITIS, DYSPHAGIA, HTN ,GOUT
--- NOTE | 2017-09-11 23:57 | NUR ---
PATIENT TAKEN TO ER BED 11 BY EMS
[2017-09-12] MEDS ORDERED: ACETAMINOPHEN 650 MG SUPP RC ONE ×2 (00:03→00:10)
--- NOTE | 2017-09-12 00:30 | NUR ---
PT HAD A BM ON THE OPPOSITE SIDE OF WHERE BEDSIDE COMMODE WAS PLACED. PT WAS IN BED WHEN LOOSE BM WAS NOTED ON FLOOR AND FOOT BOARD. PT REMINDED TO CALL FOR ASSISTANCE TO TOILET OR USE THE BEDSIDE COMMODE . PT VERBALIZED UNDERSTANDING, THEN WENT BACK TO SLEEP. PT AND ROOM WAS CLEANED, PT RE-POSTIONED AND MADE COMFORTABLE.
[2017-09-12] MEDS ORDERED: PIPERACILLIN/TAZOBACTAM 3.375 GM in DEXTROSE 5% 50 ML IV ONE (00:50)
[2017-09-12] MEDS ORDERED: LEVOFLOXACIN 750 MG/D5W PREMIX 150 ML IV ONE (00:50)
[2017-09-12] MEDS ORDERED: VANCOMYCIN 1,000 MG in DEXTROSE 5% 250 ML IV ONE (00:50)
[2017-09-12] MEDS ORDERED: NACL 0.9% 2,500 ML IV ONE (00:50)
[2017-09-12] MEDS ORDERED: VANCOMYCIN 1,000 MG VIAL ONE (00:56)
[2017-09-12] MEDS ORDERED: PIPERACILLIN/TAZOBACTAM 3.375 GM VIAL IV ONE (00:56)
--- NOTE | 2017-09-12 01:00 | NUR ---
Patient appears to be resting comfortably in bed. Vital Signs within normal limits. Respirations even and unlabored.
[2017-09-12 01:26] LABS: HEMATOCRIT 44.1 % (36-52); HEMOGLOBIN 14.3 g/dL (12.0-18.0); MEAN CORPUSCULAR HEMOGLOBIN 29 pg (27-31); MEAN CORPUSCULAR HGB CONC 32 g/dL (33-37); MEAN CORPUSCULAR VOLUME 89.6 fL (80-94); PLATELET COUNT (AUTO) 283 K/uL (140-450); RED BLOOD CELL COUNT(AUTO) 4.92 MIL/uL (4.20-6.10); RED CELL DISTRIBUTION WIDTH 14.6 % (11.6-13.7); WHITE BLOOD COUNT (AUTO) 21.5 K/uL (4.8-10.8)
[2017-09-12 01:45] LABS: PROTHROMBIN TIME 10.9 secs (10.8-13.4)
[2017-09-12 01:46] LABS: ANION GAP 12.1 (8-16); CARBON DIOXIDE 26.8 mmol/L (21-32); CREATININE 1.1 mg/dL (0.7-1.3); POTASSIUM 3.9 mmol/L (3.5-5.1)
[2017-09-12 01:55] LABS: ALBUMIN 3.1 g/dL (3.4-5.0); TOTAL BILIRUBIN 0.5 mg/dL (0.0-1.0)
[2017-09-12 02:09] LABS: LYMPHOCYTES % (MANUAL) 5 % (20-46); MONOCYTES % (MANUAL) 4 % (5-12)
--- NOTE | 2017-09-12 03:00 | NUR ---
Patient appears to be resting comfortably in bed. Vital Signs within normal limits. Respirations even and unlabored.
[2017-09-12 03:13] LABS: APPEARANCE,URINE CLEAR (CLEAR); BILIRUBIN,URINE NEGATIVE (NEGATIVE); BLOOD, URINE NEGATIVE (NEGATIVE); COLOR,URINE YELLOW (YELLOW); LEUKOCYTE ESTERASE ,URINE NEGATIVE (NEGATIVE); NITRITE, URINE NEGATIVE (NEGATIVE); PH,URINE 5.5 (5.0-9.0); UGLUCOSE 3+ (NEGATIVE)
[2017-09-12 03:30] LABS: RBC,URINE 0-5 (RARE) /HPF (0-5); WBC,URINE 0-5 (RARE) /HPF (0-5)
[2017-09-12] MEDS: NACL 0.9% 1,000 ML IV SCH ×2 (03:44→20:24)
[2017-09-12] MEDS ORDERED: LORazepam 2 MG/ML VIAL IM/IVP PRN (03:45)
[2017-09-12] MEDS ORDERED: ACETAMINOPHEN 325 MG TAB PO PRN (03:45)
[2017-09-12] MEDS ORDERED: KETOROLAC 15 MG/ML VIAL IVP PRN (03:45)
[2017-09-12] MEDS ORDERED: DOCUSATE SODIUM 100 MG GELCAP PO PRN (03:45)
[2017-09-12] MEDS ORDERED: ZOLPIDEM 5 MG TAB PO PRN (03:45)
[2017-09-12] MEDS ORDERED: ONDANSETRON 4 MG/2 ML VIAL IM/IVP PRN (03:45)
--- NOTE | 2017-09-12 04:27 | NUR ---
Patient will be admitted to care of [facility]. Admited to TELE. Will go to room 123B. Belongings list completed. Report to MIGUEL MERINO.
[2017-09-12 04:30] VITALS: BP 119/68
--- NOTE | 2017-09-12 04:30 | NUR ---
REPORT RECEIVED FROM ED NURSE. PT IN STABLE CONDITION. AAOX2. IV PATENT AND INTACT. SKIN WARM, DRY, AND INTACT. CALL DA SILVA WITHIN REACH. BED LOCKED IN LOW POSITION.
[2017-09-12 04:44] LABS: BARBITURATE, URINE NEG. ng/ml (NEG <=200); BENZODIAZEPINE, URINE NEG. ng/mL (NEG <=200); CANNABINOID, URINE NEG. ng/mL (NEG <=50); COCAINE, URINE NEG. ng/mL (NEG <=300); OPIATE, URINE NEG. ng/mL (NEG <=2000); PHENCYCLIDINE SCREEN,URINE NEG. ng/mL (NEG <=25)
[2017-09-12] MEDS ORDERED: VANCOMYCIN PER PHARMACY MC PRN (04:45)
[2017-09-12] MEDS ORDERED: ALBUTEROL SULFATE/IPRATROPIU 3 ML SOL IH PRN ×2 (04:45→08:55)
[2017-09-12 04:58] LABS: CHOL/HDL RATIO 2.5 (1-4.5); MAGNESIUM 1.1 mg/dL (1.8-2.4); PHOSPHORUS 2.9 mg/dL (2.5-4.9); THYROID STIMULATING HORMONE 0.56 uIU/mL (0.34-3.74)
[2017-09-12] MEDS ORDERED: ATI.5 PO (04:59)
[2017-09-12] MEDS ORDERED: LORazepam 0.5 MG TAB PO PRN (05:00)
[2017-09-12] MEDS ORDERED: DEXTROSE 50% 50 ML SYR IVP PRN (05:05)
--- NOTE | 2017-09-12 05:30 | NUR ---
PROTONIX AND INSULIN GIVEN FOR BS OF 252.
[2017-09-12] MEDS: BLOOD GLUCOSE MONITORING 1 DEV DEV FS SCH ×4 (05:31→21:29)
[2017-09-12] MEDS: INSULIN LISPRO SLIDING SCALE 100 UNITS/ML VIAL SUBQ PRN ×4 (05:34→21:41)
[2017-09-12] MEDS: PANTOPRAZOLE 40 MG TABEC PO SCH (05:38)
[2017-09-12] MEDS ORDERED: NACL 0.9% 250 ML IV ONE (05:55)
[2017-09-12] MEDS ORDERED: ALBUTEROL SULFATE/IPRATROPIU 3 ML SOL IH SCH (06:00)
--- NOTE | 2017-09-12 06:30 | NUR ---
PT HAD BIG BM. SAP BPC DEVELOPER TO CLEAN HIM.
[2017-09-12] MEDS ORDERED: MAG SULF 2000 MG/WATER PREMIX 50 ML IV SCH (07:00)
[2017-09-12] MEDS ORDERED: MAGNESIUM OXIDE 400 MG TAB PO SCH (07:00)
--- NOTE | 2017-09-12 07:20 | NUR ---
REPORT GIVEN TO AM NURSE. PT IN STABLE CONDITION.
--- NOTE | 2017-09-12 07:25 | NUR ---
RECEIVED PT FROM SHERIFF NURSECY, PT IS ASLEEP WITH O2 IN PLACED AT 2L VIA NC. SIDE RAILS ARE UP, PADDED AND SEIZURE PRECAUTION ENFORCED, CALL LIGHT WITHIN REACH, PT HAS IV LINES ON THE RT WRIST G. 20, SALINE LOCK AND ON THE LEFT AC G. 20 WITH NS RUNNING IN 60 ML/HR, INTACT AND PATENT. RESPIRATIONS EVEN AND NO SIGN OF DISTRESS NOTED. WILL CONTINUE TO MONITOR.
--- NOTE | 2017-09-12 07:55 | NUR ---
PT WAS AWAKEN AND VITAL SIGNS TAKEN AND IS STABLE. SEIZURE PRECAUTIONS ENFORCED AND CALL LIGHT WITHIN REACH. NO SIGN OF DISTRESS NOTED AND WILL MONITOR.
[2017-09-12 08:00] VITALS: BP 111/64
[2017-09-12] MEDS ORDERED: PIPERACILLIN/TAZOBACTAM 3.375 GM in DEXTROSE 5% 50 ML IV SCH (08:00)
--- NOTE | 2017-09-12 08:00 | NUR ---
PT WAS GIVEN A BOLUS OS NS.
[2017-09-12] MEDS: PIPER/TAZO 3.375GM/D5W PREMIX 50 ML IV SCH ×2 (08:44→16:33)
[2017-09-12] MEDS: ALLOPURINOL 100 MG TAB PO SCH (08:45)
[2017-09-12] MEDS: levETIRAcetam 500 MG TAB PO SCH ×2 (08:45→21:20)
[2017-09-12] MEDS: FINASTERIDE 5 MG TAB PO SCH (08:45)
[2017-09-12] MEDS: CHOLECALCIFEROL 1,000 IU TAB PO SCH (08:46)
[2017-09-12] MEDS: MEMANTINE 10 MG TAB PO SCH ×2 (08:46→21:22)
[2017-09-12] MEDS: DONEPEZIL 10 MG TAB PO SCH (08:46)
[2017-09-12] MEDS ORDERED: NON-FORMULARY ITEM (Aspirin (Aspirin EC) 81 MG) PO SCH (09:00)
[2017-09-12] MEDS ORDERED: METOPROLOL TARTRATE PO SCH (09:00)
--- NOTE | 2017-09-12 09:09 | NUR ---
DM, OF PT CALLED AND ASKED ABOUT THE PT'S CONDITION.
[2017-09-12] MEDS ORDERED: ECOTRIN 81 MG TABEC PO SCH (09:56)
[2017-09-12] MEDS ORDERED: METOPROLOL 25 MG TAB PO SCH (09:59)
[2017-09-12] MEDS: MISC INJECTION 1 EA in DEXTROSE 5% 100 ML IV SCH ×2 (10:43→12:01)
--- NOTE | 2017-09-12 10:56 | NUR ---
DR. MARS VISITED AND SAW AND CHECKED THE PT AND DR. BARRETT IS ON THE BEDSIDE ALSO AND SPOKE TO THE PT AND DR. MARS REGARDING THE CARE PLAN OF THE PT.
--- NOTE | 2017-09-12 11:30 | NUR ---
PT IS AWAKE WITH FAMILY ON TH BEDSIDE. NO SIGN OF DISTRESS NOTED ON THE PT AND WILL CONTINUE TO MONITOR.
[2017-09-12 12:00] VITALS: BP 119/70
[2017-09-12] MEDS: ALBUTEROL SULFATE/IPRATROPIU 3 ML SOL IH SCH ×2 (13:00→19:50)
--- NOTE | 2017-09-12 13:07 | NUR ---
NO HHN GIVEN DUE TO PT SLEEPING NO SIGNS OF DISTRESS NOTED
[2017-09-12] MEDS ORDERED: LORazepam 2 MG/ML VIAL IVP SCH (14:50)
--- NOTE | 2017-09-12 14:55 | NUR ---
DR. BARRETT CALLED AND ASKED ABOUT THE MEDICATIONS GIVEN TO THE PT AND SAID THAT SHE PUT AN ORDER FOR ATIVAN FOR THE PT PRN FOR SEIZURE EPISODE.
[2017-09-12 16:00] VITALS: BP 112/69
--- NOTE | 2017-09-12 16:01 | NUR ---
PT IS AWKE AND FAMILY IS ON THE BEDSIDE, CALLED AND INFORMED THAT THE PT IS HAVING A SEIZURE, RESPONDED AND GAVE ATIVAN IV PUSH TO THE PT. PT TOLERATED IT. WILL MONITOR.
--- NOTE | 2017-09-12 16:20 | NUR ---
PT IS AWAKE WITH FAMILY ON THE BEDSIDE, VITAL SIGNS TAKE AND IS STABLE. NO SIGN OF DISTRESS NOTED AND WILL MONITOR.
--- NOTE | 2017-09-12 16:48 | NUR ---
PT WAS ASSISTED TO THE BATHROOM AND PT HAD A BOWEL MOVEMENT, CLEANED AND ASSISTED BACK TO BED. BLOOD GLUCOSE CHECK DONE AND RESULT IS 174, INSULIN GIVEN AT 2 UNITS AT RT UPPER ARM. PT TOLERATED IT AND NOS SIGN OF DISTRESS NOTED. WILL MONITOR PT.
--- NOTE | 2017-09-12 18:29 | NUR ---
VERIFIED WITH DR. AGOSTO REGARDING THE PT'S DIET. DR. AGOSTO SAID THAT SHE WILL PUT AN ORDER.
--- NOTE | 2017-09-12 19:35 | NUR ---
ENDORSED PT TO DM FOR CONTINUITY OF CARE, PT IS IN THE BATHROOM HAVING A BOWEL MOVEMENT AND BEING ASSISTED BY PIOTR TONG. NO SIGN OF DISTRESS NOTED.
--- NOTE | 2017-09-12 19:35 | NUR ---
RECEIVED REPORT FORM SONNY MERINO DAYSHIFT NURSE AT BEDSIDE FOR TRANSFER OF CARE. PT IN TOILET WITH UPHOLSTERY AUTO TRIMMER AT THIS TIME. PT WAS ASSISTED BACK TO LOW BED DUE TO HAVING UNSTEADY GATE. ALL FALS PRECAUTIONS IN PLACE WELL SEIZURE PRECAUTIONS. HE IS AOX2. WITH SKIN INTACT EXCEPT FOR 2 IV SITES , ONE ON RIGHT WRIST AND ONE ON LEFT AC WHICH IS RUNNING N/S AT 60. IV SITE ASYMPTOMATIC, BED LOW AND CALL DA SILVA IN REACH. PT HAS NO S/S OF PAIN OR DISTRESS NOTED.
[2017-09-12 20:00] VITALS: BP 115/63
--- NOTE | 2017-09-12 20:00 | NUR ---
PT PROVIDED BEDSIDE COMMODE FOR SAFETY. PT IN LOW BED WITH BED ALARM ON, NO S/S OF PAIN OR DISTRESS NOTED.
[2017-09-12] MEDS ORDERED: INSULIN DETEMIR U SCH (21:00)
--- NOTE | 2017-09-12 21:00 | NUR ---
PT RECEIVED SNACK OF SANDWICH DUE TO F/S BEING 166. AND PT HAVING ORDER OF 40 UNITS OF LANTUS. 2 UNITS OF HUMALOG ALSO PROVIDED
[2017-09-12] MEDS: ECOTRIN 81 MG TABEC PO SCH (21:19)
[2017-09-12] MEDS: traZODone 50 MG TAB PO SCH (21:19)
[2017-09-12] MEDS: ATORVASTATIN 80 MG TAB PO SCH (21:20)
[2017-09-12] MEDS: METOPROLOL 25 MG TAB PO SCH (21:21)
[2017-09-12] MEDS: QUEtiapine FUMARATE 25 MG TAB PO SCH (21:22)
[2017-09-12] MEDS: INSULIN LANTUS 100 UNITS/ML 10 ML VIAL SUBQ SCH (21:38)
--- NOTE | 2017-09-12 23:00 | NUR ---
PT HAD FINISHED HIS SNACK AND WAS WATCHING TV AT THIS TIME CALL DA SILVA IN REACH AND ALL PRECAUTIONS IN PLACE.
--- NOTE | 2017-09-13 | NUR ---
V/S TAKEN AND RECORDED WNL. NO EPISODES OF SEIZURES AT THIS TIME.
[2017-09-13] MEDS: PIPER/TAZO 3.375GM/D5W PREMIX 50 ML IV SCH ×3 (01:00→17:45)
[2017-09-13] MEDS ORDERED: LEVOFLOXACIN 750 MG/D5W PREMIX 150 ML IV SCH (02:00)
--- NOTE | 2017-09-13 02:00 | NUR ---
PT IN BED ASLEEP, PT TURNED AND REPOSITIONED. PT TAKING OFF N/C AND HAD TO BE PLACED BACK IN NOSTRILS, NO S/S OF PAIN OR DISTRESS NOTED.
--- NOTE | 2017-09-13 04:00 | NUR ---
PT IN BED, TURNED CHANGED AND REPOSITIONED PT HAD N/C OFF NOSTRILS AND THEY NEEDED TO BE PLACED BACK IN NOSTRILS.V/S FOLLOWS T 98.7 P 88 R 18 B/P 122/72. PT IN LOW BED WITH SEIZURE PRECAUTIONS IN PLACE.
--- NOTE | 2017-09-13 05:33 | NUR ---
RESPIRATORY AT BEDSIDE , GIVING NEB TREATMENT. SPUTUM SAMPLE COLLECTED AFTER NEB TREATMENT BUT SAMPLE WAS CLEAR AND THIN. SAMPLE BOTTLED AND LABELED.
[2017-09-13] MEDS: PANTOPRAZOLE 40 MG TABEC PO SCH (05:49)
[2017-09-13 06:00] VITALS: BP 122/72
[2017-09-13] MEDS: BLOOD GLUCOSE MONITORING 1 DEV DEV FS SCH ×4 (06:16→21:00)
[2017-09-13] MEDS: INSULIN LISPRO SLIDING SCALE 100 UNITS/ML VIAL SUBQ PRN ×4 (06:20→20:31)
[2017-09-13] MEDS: ALBUTEROL SULFATE/IPRATROPIU 3 ML SOL IH SCH ×3 (07:00→20:04)
--- NOTE | 2017-09-13 07:10 | NUR ---
GAVE REPORT TO DAYSHIFT NURSE SITAL RN AT BEDSIDE FOR TRANSFER OF CARE, PT IN STABLE CONDITION.
--- NOTE | 2017-09-13 07:11 | NUR ---
RECEIVED REPORT FROM AM NURSE AT BEDSIDE. PT AWAKE, LYING ON HIS BACK. ALL SAFETY MEASURE IN PLACE. UPDATED BOARD AND INTRODUCED SELF. WILL CONTINUE TO MONITOR PT.
--- NOTE | 2017-09-13 07:15 | NUR ---
ENDORSED PT TO PM NURSE FOR CONTUINITY OF CARE. PT STABLE AT THIS TIME.
[2017-09-13 08:00] VITALS: BP 128/73
[2017-09-13 08:29] LABS: ANION GAP 10.3 (8-16); POTASSIUM 3.3 mmol/L (3.5-5.1)
[2017-09-13 08:37] LABS: MAGNESIUM 1.7 mg/dL (1.8-2.4); PHOSPHORUS 2.6 mg/dL (2.5-4.9)
[2017-09-13 08:40] LABS: BASOPHILS % (AUTO) 0.2 % (0.0-2.0); EOSINOPHILS % (AUTO) 0.3 % (0.0-4.0); HEMATOCRIT 37.3 % (36-52); HEMOGLOBIN 12.1 g/dL (12.0-18.0); LYMPHOCYTES # (AUTO) 1.6 K/uL (2.0-11.5); LYMPHOCYTES % (AUTO) 12.9 % (20.5-51.1); MEAN CORPUSCULAR HEMOGLOBIN 29 pg (27-31); MEAN CORPUSCULAR HGB CONC 32 g/dL (33-37); MEAN CORPUSCULAR VOLUME 89.1 fL (80-94); MONOCYTES # (AUTO) 0.6 K/uL (0.8-1.0); MONOCYTES % (AUTO) 5.2 % (1.7-9.3); NEUTROPHILS # (AUTO) 9.8 K/uL (1.8-7.7); NEUTROPHILS % (AUTO) 81.4 % (42.2-75.2); PLATELET COUNT (AUTO) 202 K/uL (140-450); RED BLOOD CELL COUNT(AUTO) 4.19 MIL/uL (4.20-6.10)
--- NOTE | 2017-09-13 09:45 | NUR ---
ADMINISTERED MEDS ORDERED . PT TOLERATED WELL. NO SIGN OF DISTRESS . WILL CONTINUE TO MONITOR PT.
[2017-09-13] MEDS: levETIRAcetam 500 MG TAB PO SCH ×2 (09:51→20:10)
[2017-09-13] MEDS: ECOTRIN 81 MG TABEC PO SCH ×2 (09:51→20:12)
[2017-09-13] MEDS: METOPROLOL 25 MG TAB PO SCH ×2 (09:52→20:11)
[2017-09-13] MEDS: ALLOPURINOL 100 MG TAB PO SCH (09:53)
[2017-09-13] MEDS: CHOLECALCIFEROL 1,000 IU TAB PO SCH (09:53)
[2017-09-13] MEDS: FINASTERIDE 5 MG TAB PO SCH (09:53)
[2017-09-13] MEDS: MEMANTINE 10 MG TAB PO SCH ×2 (09:53→20:11)
[2017-09-13] MEDS: DONEPEZIL 10 MG TAB PO SCH (09:53)
[2017-09-13] MEDS: ENOXAPARIN 40 MG/0.4 ML SYR SUBQ SCH (09:55)
--- NOTE | 2017-09-13 10:25 | NUR ---
PATIENT HAS BEEN SCREENED AND CATEGORIZED HIGH NUTRITION RISK. PATIENT WILL BE SEEN WITHIN 1-2 DAYS OF ADMISSION. 09/13/[address]
--- NOTE | 2017-09-13 10:30 | NUR ---
MET PT FAMILY. ASKING ABOUT PT, UPDATED ON PT. PT FAMILY ASKING IF [facility] FOR [facility] PLACEMENT [place]. INFORMED THAT WILL INFORM DOCTOR ABOUT THEIR REQUEST. VERBALISED THE UNDERSTANDING. WILL CONTINUE WITH CURRENT PLAN OF CARE.
--- NOTE | 2017-09-13 12:00 | NUR ---
CHECKED ON PT. HAS NORMAL VITAL SIGNS. PT NEEDS INSULIN COVERAGE. PT ASKING IF HE CAN GO HOME TODAY. INFORMED THAT DR HAS NOT PUT ORDER YET. WILL INFORM THE PT SOON THE DR ORDERS ARE OBTAINED. PT VERBALIZED THE UNDERSTANDING. WILL CONTINUE TO MONITOR PT.
--- NOTE | 2017-09-13 14:00 | NUR ---
CHECKED ON PT. ASSISTED PT TO USE THE URINAL. NO SIGN OF DISTRESS. ALL SAFETY MEASURE IN PLACE. WILL CONTINUE TO MONITOR THE PT.
[2017-09-13] MEDS: NACL 0.9% 1,000 ML IV SCH (15:14)
--- NOTE | 2017-09-13 15:21 | NUR ---
09/13/17 RD INITIAL ASSESSMENT COMPLETED PLEASE REFER TO NUTRITION ASSESSMENT UNDER CARE ACTIVITY FOR ESTIMATED NUTRITIONAL NEEDS. 1. CONTINUE CCHO 60 GM DIET WITH GLUCERNA BID TOLERATED 2. PROVIDED NUTRITION EDUCATION REGARDING PO INTAKE AND DIABETES 3. RD TO FOLLOW-UP 3-5 DAYS, MODERATE RISK AVEL CHILEL RD
[2017-09-13 16:00] VITALS: BP 117/75
--- NOTE | 2017-09-13 16:32 | NUR ---
CHECKED ON PT . LYING DOWN BED. NON SIGN OF DISTRESS. PT ASKING WHEN HE CAN BE DISCHARGED TO HOME. ASKED THAT PT HAS NO ORDERS YET. WILL INFORM SOON THE ORDERS ARE IN. ALL SAFETY MEASURE IN [place] . WILL CONTINUE TO MONITOR PT.
--- NOTE | 2017-09-13 17:45 | NUR ---
ADMINISTERED MEDS TO PT. TOLERATED WELL. NO SIGN OF DISTRESS. PT ASKING IF HE HAS DISCHARGE ORDER. NO DISCHARGE ORDER YET ON PT. INFORMED PT. WILL CONTINUE TO MONITOR THE PT.
--- NOTE | 2017-09-13 19:15 | NUR ---
RECEIVED PATIENT LYING COMFORTABLY ON BED. BED IN LOW POSITION. CALL LIGHT WITHIN REACH. V/S WNL. WILL CONTINUE TO MONITOR.
[2017-09-13 20:00] VITALS: BP 124/71
[2017-09-13] MEDS: QUEtiapine FUMARATE 25 MG TAB PO SCH (20:10)
[2017-09-13] MEDS: ATORVASTATIN 80 MG TAB PO SCH (20:11)
[2017-09-13] MEDS: traZODone 50 MG TAB PO SCH (20:11)
[2017-09-13] MEDS: MAGNESIUM OXIDE 400 MG TAB PO SCH (20:12)
[2017-09-13] MEDS ORDERED: levETIRAcetam 500 MG TAB PO SCH (21:00)
[2017-09-13] MEDS: INSULIN LANTUS 100 UNITS/ML 10 ML VIAL SUBQ SCH (21:00)
--- NOTE | 2017-09-13 21:40 | NUR ---
SEEN PATIENT ASLEEP ON BED BUT EASILY. PATIENT COOPERATIVE AND OBEYS COMMAND. NO S/S OF DISTRESS NOTED AT THIS TIME.
[2017-09-14] VITALS: BP 129/77
[2017-09-14] MEDS: PIPER/TAZO 3.375GM/D5W PREMIX 50 ML IV SCH ×3 (00:50→17:21)
--- NOTE | 2017-09-14 04:30 | NUR ---
AM CARE DONE. PATIENT TURN AND REPOSITIONED FOR COMFORT. CALL LIGHTS WITHIN REACH.
[2017-09-14 04:41] VITALS: BP 139/80
[2017-09-14] MEDS: NACL 0.9% 1,000 ML IV SCH (05:44)
[2017-09-14 06:14] LABS: BASOPHILS % (AUTO) 0.4 % (0.0-2.0); EOSINOPHILS # (AUTO) 0.1 K/uL (0-0.4); EOSINOPHILS % (AUTO) 1.6 % (0.0-4.0); HEMATOCRIT 31.7 % (36-52); HEMOGLOBIN 10.5 g/dL (12.0-18.0); LYMPHOCYTES % (AUTO) 28.3 % (20.5-51.1); MEAN CORPUSCULAR HEMOGLOBIN 30 pg (27-31); MEAN CORPUSCULAR HGB CONC 33 g/dL (33-37); MEAN CORPUSCULAR VOLUME 89.1 fL (80-94); MONOCYTES # (AUTO) 0.7 K/uL (0.8-1.0); MONOCYTES % (AUTO) 9.4 % (1.7-9.3); NEUTROPHILS # (AUTO) 4.2 K/uL (1.8-7.7); NEUTROPHILS % (AUTO) 60.3 % (42.2-75.2); PLATELET COUNT (AUTO) 188 K/uL (140-450); RED BLOOD CELL COUNT(AUTO) 3.56 MIL/uL (4.20-6.10)
[2017-09-14 06:21] LABS: T4 (THYROXINE) 6.3 ug/dL (4.5-12.0)
[2017-09-14] MEDS: INSULIN LISPRO SLIDING SCALE 100 UNITS/ML VIAL SUBQ PRN ×4 (06:26→21:12)
[2017-09-14] MEDS: PANTOPRAZOLE 40 MG TABEC PO SCH (06:27)
[2017-09-14] MEDS: BLOOD GLUCOSE MONITORING 1 DEV DEV FS SCH ×4 (06:28→21:06)
[2017-09-14 06:32] LABS: ANION GAP 9.7 (8-16); CARBON DIOXIDE 27.7 mmol/L (21-32); CREATININE 0.9 mg/dL (0.7-1.3); POTASSIUM 3.4 mmol/L (3.5-5.1)
[2017-09-14 06:44] LABS: MAGNESIUM 1.6 mg/dL (1.8-2.4); PHOSPHORUS 2.9 mg/dL (2.5-4.9)
[2017-09-14] MEDS: ALBUTEROL SULFATE/IPRATROPIU 3 ML SOL IH SCH ×3 (07:00→13:42)
--- NOTE | 2017-09-14 07:05 | NUR ---
ENDORSEMENT GIVEN TO AM SHIFT NURSE AT PATIENT BEDSIDE. CALL LIGHTS WITHIN REACH. PATIENT IN STABLE CONDITION.
--- NOTE | 2017-09-14 07:06 | NUR ---
RECEIVED REPORT FROM PM NURSE AT BEDSIDE. PT LYING ON BED. NO DISTRESS NOTED. PT ASKING IF HE CAN BE DISCHARGE TODAY. INFORMED THAT WILL NOTIFY IF DC ORDER IS PLACE. UPDATED BOARD AND INTRODUCED SELF. WILL CONTINUE TO MONITOR PY.
[2017-09-14 07:41] VITALS: BP 130/84
[2017-09-14] MEDS ORDERED: metFORMIN 500 MG TAB PO SCH (08:00)
--- NOTE | 2017-09-14 09:15 | NUR ---
STARTED IV 22 G ON RT FA. IV 0.9 NS INFUSING AT 60 ML/HR. ADMINISTERED MEDS. STUDENT WITH INSTRUCTOR ADMINISTERED MEDS ON PT. PT TOLERATED WELL. NO SIGN OF DISTRESS NOTED. ALL SAFETY MEASURE IN PLACE. WILL CONTINUE TO MONITOR PT.
[2017-09-14] MEDS: ENOXAPARIN 40 MG/0.4 ML SYR SUBQ SCH (09:29)
[2017-09-14] MEDS: DONEPEZIL 10 MG TAB PO SCH (09:31)
[2017-09-14] MEDS: ECOTRIN 81 MG TABEC PO SCH ×2 (09:32→21:07)
[2017-09-14] MEDS: levETIRAcetam 500 MG TAB PO SCH ×2 (09:33→21:08)
[2017-09-14] MEDS: METOPROLOL 25 MG TAB PO SCH ×2 (09:35→21:08)
[2017-09-14] MEDS: MAGNESIUM OXIDE 400 MG TAB PO SCH ×2 (09:35→21:08)
[2017-09-14] MEDS: MEMANTINE 10 MG TAB PO SCH ×2 (09:36→21:09)
[2017-09-14] MEDS: FINASTERIDE 5 MG TAB PO SCH (09:37)
[2017-09-14] MEDS: CHOLECALCIFEROL 1,000 IU TAB PO SCH (09:37)
[2017-09-14] MEDS: ALLOPURINOL 100 MG TAB PO SCH (09:38)
--- NOTE | 2017-09-14 11:01 | NUR ---
Java Core Developer Note: During previous hospital admission patient was transfer to [facility] (SNF) (short term snf placement). I called and spoke with admission coordinator Socorro from [facility], per Socorro, they will accept patient back at their facility upon discharge. Socorro stated they made an appt for patient with GI MD as previously requested by MD during previous hospital admission, she provided me with outpatient follow up appt, 10/12/17 2:45pm with , [address] [place] [phone] [address],
[2017-09-14 12:00] VITALS: BP 149/94
--- NOTE | 2017-09-14 12:00 | NUR ---
CHECKED ON PT. PT SITTING ON HIS BED. ASSISTED WITH URINAL. OFFERED URINAL TO PT. INFORMED HIM TO PRESS CALL LIGHT WHEN NEED HELP. VERBALIZED UNDERSTANDING OF TEACHING. WILL CONTINUE TO MONITOR PT.
--- NOTE | 2017-09-14 13:42 | NUR ---
PT SLEEPING WITH NO SIGNS OF DISTRESS NOTED AT THIS TIME NO HHN GIVEN
[2017-09-14 16:00] VITALS: BP 143/85
--- NOTE | 2017-09-14 16:00 | NUR ---
CHECKED ON PT. LYING ON BED ON HIS BACK.VS NOTED, STABLE AT THIS POINT. NO SIGN OF DISTRESS. ASKING WHEN HE WILL BE DISCHWILL CONTINUE TO MONITOR PT.
--- NOTE | 2017-09-14 17:30 | NUR ---
ADMINISTERED ABX TO PT. TOLERATED WELL. ASKING FOR DC. UPDATED WITH PLAN OF CARE. NO SIGN OF DISTRESS NOTED. WILL CONTINUE TO MONITOR THE PT.
[2017-09-14] MEDS: metFORMIN 500 MG TAB PO SCH (18:36)
--- NOTE | 2017-09-14 19:15 | NUR ---
ENDORSED PT TO PM NURSE AT BEDSIDE. PT STABLE AT THIS TIME.
--- NOTE | 2017-09-14 19:16 | NUR ---
RECEIVED REPORT FROM DAY SHIFT RN FOR CONTINUITY OF CARE. PT IS A/OX2, ON 3L O2 VIA NASAL CANNULA. PT IS ABLE TO MAKE NEEDS KNOWN, ABLE TO FOLLOW COMMANDS. RESPIRATIONS EVEN AND UNLABORED AT THE MOMENT. PT HAS 22G IV TO RIGHT FA, ASYMPTOMATIC, INTACT AND PATENT. DISCUSSED PLAN OF CARE WITH PT, PT VERBALIZED UNDERSTANDING. VITAL SIGNS WITHIN NORMAL LIMITS. PT STABLE, NO SIGNS OF DISTRESS NOTED AT THIS TIME. BED IN LOWEST POSITION, BED ALARM ON. CALL LIGHT WITHIN REACH, WILL CONTINUE TO MONITOR.
[2017-09-14 20:00] VITALS: BP 158/93
[2017-09-14] MEDS: ATORVASTATIN 80 MG TAB PO SCH (21:08)
[2017-09-14] MEDS: QUEtiapine FUMARATE 25 MG TAB PO SCH (21:09)
[2017-09-14] MEDS: INSULIN LANTUS 100 UNITS/ML 10 ML VIAL SUBQ SCH (21:10)
--- NOTE | 2017-09-14 21:12 | NUR ---
ADMINISTERED SCHEDULED MEDICATIONS AND 4 UNITS OF HUMALOG COVERAGE FOR BLOOD SUGAR 206, PT TOLERATED WELL.
[2017-09-14] MEDS: traZODone 50 MG TAB PO SCH (21:18)
[2017-09-15] VITALS: BP 133/81
--- NOTE | 2017-09-15 | NUR ---
VITAL SIGNS WITHIN NORMAL LIMITS. PT STABLE, NO SIGNS OF DISTRESS NOTED AT THIS TIME. BED IN LOWEST POSITION, BED ALARM ON. CALL LIGHT WITHIN REACH, WILL CONTINUE TO MONITOR.
[2017-09-15] MEDS: PIPER/TAZO 3.375GM/D5W PREMIX 50 ML IV SCH ×2 (01:48→08:50)
[2017-09-15] MEDS: NACL 0.9% 1,000 ML IV SCH (01:49)
[2017-09-15 04:00] VITALS: BP 122/55
[2017-09-15 05:55] LABS: BASOPHILS % (AUTO) 0.4 % (0.0-2.0); EOSINOPHILS # (AUTO) 0.2 K/uL (0-0.4); EOSINOPHILS % (AUTO) 3.2 % (0.0-4.0); HEMATOCRIT 30.9 % (36-52); HEMOGLOBIN 10.2 g/dL (12.0-18.0); LYMPHOCYTES # (AUTO) 2.1 K/uL (2.0-11.5); MEAN CORPUSCULAR HEMOGLOBIN 29 pg (27-31); MEAN CORPUSCULAR HGB CONC 33 g/dL (33-37); MEAN CORPUSCULAR VOLUME 88.7 fL (80-94); MONOCYTES # (AUTO) 0.6 K/uL (0.8-1.0); MONOCYTES % (AUTO) 10.3 % (1.7-9.3); NEUTROPHILS # (AUTO) 3.2 K/uL (1.8-7.7); NEUTROPHILS % (AUTO) 52.1 % (42.2-75.2); PLATELET COUNT (AUTO) 182 K/uL (140-450); RED BLOOD CELL COUNT(AUTO) 3.48 MIL/uL (4.20-6.10); RED CELL DISTRIBUTION WIDTH 14.6 % (11.6-13.7); WHITE BLOOD COUNT (AUTO) 6.1 K/uL (4.8-10.8)
[2017-09-15] MEDS: PANTOPRAZOLE 40 MG TABEC PO SCH (06:05)
[2017-09-15] MEDS: BLOOD GLUCOSE MONITORING 1 DEV DEV FS SCH ×2 (06:06→12:12)
[2017-09-15 06:36] LABS: ANION GAP 9.6 (8-16); CARBON DIOXIDE 28.7 mmol/L (21-32); CREATININE 0.9 mg/dL (0.7-1.3); POTASSIUM 3.3 mmol/L (3.5-5.1)
[2017-09-15 06:44] LABS: MAGNESIUM 1.5 mg/dL (1.8-2.4); PHOSPHORUS 2.8 mg/dL (2.5-4.9)
--- NOTE | 2017-09-15 07:15 | NUR ---
ENDORSED PT TO DAY SHIFT RN FOR CONTINUITY OF CARE. PT IN STABLE CONDITION.
--- NOTE | 2017-09-15 07:16 | NUR ---
RECEIVED REPORT FROM PM NURSE AT BEDSIDE FOR CONTINUITY OF CARE. PT SLEEPING AT THIS TIME. IV ON RT HAND 22 G , INFUSING WELL. NO SIGN OF DISTRESS. WILLCONTINUE TO MONITOR PT.
[2017-09-15 07:41] VITALS: BP 134/77
[2017-09-15] MEDS ORDERED: MAG SULF 2000 MG/WATER PREMIX 50 ML IV ONE (07:45)
[2017-09-15] MEDS ORDERED: POTASSIUM CHLORIDE 10 MEQ TABER PO SCH (07:46)
--- NOTE | 2017-09-15 08:05 | NUR ---
AWAKE AND ALERT RESPONSIVE NO SOB NOTED PATIENT WITH BREAKFAST TRAY DIRECT SUPPORT PROFESSIONAL TO ATTEMPT HH THERAPY AT A LATER TIME
[2017-09-15] MEDS: CHOLECALCIFEROL 1,000 IU TAB PO SCH (08:50)
[2017-09-15] MEDS: levETIRAcetam 500 MG TAB PO SCH (08:51)
[2017-09-15] MEDS: metFORMIN 500 MG TAB PO SCH (08:51)
[2017-09-15] MEDS: ECOTRIN 81 MG TABEC PO SCH (08:51)
[2017-09-15] MEDS: FINASTERIDE 5 MG TAB PO SCH (08:52)
[2017-09-15] MEDS: MAGNESIUM OXIDE 400 MG TAB PO SCH (08:52)
[2017-09-15] MEDS: DONEPEZIL 10 MG TAB PO SCH (08:52)
[2017-09-15] MEDS: MEMANTINE 10 MG TAB PO SCH (08:52)
[2017-09-15] MEDS: ALLOPURINOL 100 MG TAB PO SCH (08:52)
[2017-09-15] MEDS: METOPROLOL 25 MG TAB PO SCH (08:53)
[2017-09-15] MEDS: ALBUTEROL SULFATE/IPRATROPIU 3 ML SOL IH SCH ×2 (08:56→13:57)
[2017-09-15] MEDS: ENOXAPARIN 40 MG/0.4 ML SYR SUBQ SCH (09:02)
--- NOTE | 2017-09-15 09:15 | NUR ---
ADMINISTERED MEDS TO PT . TOLERATED WELL. POSSIBLE DISCHARGE TODAY. INFORMED PT. PT ASKING TIME. INFORM WILL UPDATE WHEN DC ORDERS ARE AVAILABLE. TOLERATE MEDS WELL. WILL CONTINUE TO MONITOR PT.
[2017-09-15] MEDS ORDERED: ASCO1CAP75 PO (10:11)
[2017-09-15] MEDS ORDERED: LEVO750T2 PO (10:11)
[2017-09-15] MEDS ORDERED: CLIN300C2 PO (10:11)
[2017-09-15] MEDS: MAGNESIUM SULFATE 1GM in DEXTROSE 5% 100 ML PREMIX IV SCH ×2 (10:39→12:11)
[2017-09-15 12:00] VITALS: BP 144/81
[2017-09-15] MEDS: INSULIN LISPRO SLIDING SCALE 100 UNITS/ML VIAL SUBQ PRN (12:14)
[2017-09-15 12:26] VITALS: BP 144/81
--- NOTE | 2017-09-15 12:30 | NUR ---
CALLED DM. INFORMED THAT PT WILL BE SENT SENT HOME. PER CM PT STABLE ENOUGH TO DC HOME. GRANDSON TO [employer] SUPERINTENDENT PT. UPDATED PT. WILL CONTINUE TO MONITOR PT.
--- NOTE | 2017-09-15 13:30 | NUR ---
CHECKED ON PT . NO SIGN OF DISTRESS. INFORMED THAT PT GRANDSON ON WAY. WILL BRING CLOTHES FOR PT. SIITING ON CHAIR. WILL CONTINUE TO MONITOR PT.
--- NOTE | 2017-09-15 14:00 | NUR ---
LUANA CABRERA CALLED. PT GOING HOME INSTEAD OF SNF. PT STABLE. DOESN'T QUALIFY FOR THE SNF. PT UPDATED. PT ASKING FOR CLOTHES TO WEAR BEFORE GOING HOME. INFORMED THAT WILL CALL AND ASK HER TO BRING CLOTHES .CALLED , COULD NOT GET HOLD OF HER.WILL CALL HER AGAIN. PER CHARGE NURSE, PT GRANDSON TO PICK HIM UP. WILL CONTINUE TO MONITOR PT.
--- NOTE | 2017-09-15 14:10 | NUR ---
SPOKE WITH MRS DM RODRIGUEZ, PT'S ON THE PHONE AT [phone], DM INFORMED OF DISCHARGE HOME ORDER, PT WILL NOT GO TO SNF, STATED SHE WAS EXPECTING HIM TO GO TO [facility] FOR AT LEAST A FEW DAYS, WHICH WOULD HAVE BEEN CONVENIENT BECAUSE SHE IS "IN THE PROCESS OF MOVING", IT WAS EXPLAINED TO HER THAT PT NO LONGER HAS NEED FOR INTERMEDIATE SERVICE AND OK TO GO HOME, DM VERBALIZED UNDERSTANDING, SHE STATED SHE WILL SEND HER GRANDSON TO PICK HIM UP, SHE WILL CALL US WITH ETA.
[2017-09-15 16:00] VITALS: BP 129/83
--- NOTE | 2017-09-15 16:30 | NUR ---
PT GRANDSON IN ROOM. PREPARED PT FOR HOME. MANAGER COPY HELPED CHANGED PT. ALL IV TAKEN OUT. NO SIGN OF DISTRESS. PT HAPPY TO GOING HOME. IN STABLE CONDITION.
--- NOTE | 2017-09-15 17:00 | NUR ---
PT DISCHARGED. LEFT THE HOSPITAL AT 1700.PT STABLE, TOOK ALL HIS BELONGINGS WITH HIM. PT [id number].NO SIGN OF DISTRESS. GRANDSEPIDEH MEZA TOOK THE PT HOME BY CAR. DROPPED OFF PT TO THE CAR.
== END 2017-09-15 16:55 | disposition home or self-care (01) | DRG 177 ==
LOC: MED 23:51 → UNDOADMIN 09-12 03:44 → MTU 09-12 03:44
PROVIDERS: ADMIT General Practice; ATTEND General Practice
DX: J69.0 Pneumonitis due to inhalation of food and vomit (principal); K85.90 Acute pancreatitis without necrosis or infection, unspecified; E87.1 Hypo-osmolality and hyponatremia; E44.0 Moderate protein-calorie malnutrition; J44.0 Chronic obstructive pulmonary disease with (acute) lower respiratory infection; K86.3 Pseudocyst of pancreas; J98.11 Atelectasis; E11.65 Type 2 diabetes mellitus with hyperglycemia; E86.0 Dehydration; G40.909 Epilepsy, unspecified, not intractable, without status epilepticus; I10 Essential (primary) hypertension; I25.10 Atherosclerotic heart disease of native coronary artery without angina pectoris; E78.5 Hyperlipidemia, unspecified; G30.9 Alzheimer's disease, unspecified; F02.80 Dementia in other diseases classified elsewhere, unspecified severity, without behavioral disturbance, psychotic disturbance, mood disturbance, and anxiety; M10.9 Gout, unspecified; N40.0 Benign prostatic hyperplasia without lower urinary tract symptoms; E83.42 Hypomagnesemia; K21.9 Gastro-esophageal reflux disease without esophagitis; R09.02 Hypoxemia; Y95 Nosocomial condition; Z79.4 Long term (current) use of insulin; Z86.711 Personal history of pulmonary embolism; Z87.891 Personal history of nicotine dependence; Z68.27 Body mass index [BMI] 27.0-27.9, adult; I25.2 Old myocardial infarction; Z79.82 Long term (current) use of aspirin; Z79.899 Other long term (current) drug therapy; Z88.5 Allergy status to narcotic agent; Z95.5 Presence of coronary angioplasty implant and graft; Z90.49 Acquired absence of other specified parts of digestive tract; Z86.73 Personal history of transient ischemic attack (TIA), and cerebral infarction without residual deficits
CPT/HCPCS: 36415; 36600; 70450; 71045; 80048; 80053; 80305; 81001; 82150; 82803; 82948; 83036; 83605; 83690; 83735; 84100; 84134; 84436; 84443; 84479; 84484; 85025; 85610; 85730; 87040; 87070; 87081; 87205; 93005; 94640; 96361; 96365; 96366; 96367; 97110; 99285; J1650; J1815; J1956; J2060; J2543; J3370; J3475; J7030; J7060; J7620